=== PATIENT | male | born 1950 | race Caucasian/White ===

== ENCOUNTER 2017-04-21 14:13 | Inpatient (IN) | payer OTHER, MEDICARE ==
[~2017-04-21] VITALS: Ht 172.7 cm; Wt 77.9 kg
[2017-04-21 18:54] VITALS: BP 169/63; PULSE 88; RESP 16; TEMP 98.4; O2SAT 95
[2017-04-21] MEDS ORDERED: diphenhydrAMINE HCL 50 MG/ML VIAL - HS PRN IM (20:45)
[2017-04-21] MEDS ORDERED: MAGNESIUM HYDROXIDE SUSP 30 ML CUP PO PRN (20:45)
[2017-04-21] MEDS ORDERED: LORazepam 2 MG/ML VIAL - age > 65 yrs IM PRN (20:45)
[2017-04-21] MEDS ORDERED: ALUMINUM/MAGNESIUM/SIMETH 30 ML CUP PO PRN (20:45)
[2017-04-21] MEDS: REMOVE OLD NICOTINE PATCH T-DERMAL SCH (21:00)
[2017-04-21] MEDS: diphenhydrAMINE HCL 50 MG CAP - HS PRN PO (21:36)
[2017-04-21] MEDS: LORazepam 0.5 MG TAB age > 65 yrs PO PRN (21:36)
[2017-04-21] MEDS ORDERED: HYDR-3366 PO (22:20)
[2017-04-21] MEDS ORDERED: CEFU1TAB18 PO (22:30)
[2017-04-21] MEDS ORDERED: LISI10TA3 PO (22:30)
[2017-04-21] MEDS ORDERED: BACL10TA PO (22:30)
[2017-04-21] MEDS ORDERED: NORT50CA PO (22:30)
[2017-04-21] MEDS ORDERED: DULO1CAP2 PO (22:30)
[2017-04-21] MEDS ORDERED: LITH150C PO (22:30)
[2017-04-21] MEDS ORDERED: SERO50TA PO (22:30)
[2017-04-21] MEDS ORDERED: TRAZ100T10 PO (22:30)
[2017-04-21] MEDS ORDERED: FURO20TA PO (22:30)
[2017-04-21] MEDS ORDERED: ARIP1TAB11 PO (22:30)
[2017-04-22 06:05] VITALS: BP 157/89; PULSE 72; RESP 20; TEMP 98; O2SAT 99
[2017-04-22] MEDS: NICOTINE 21 MG/24 HR PATCH T-DERMAL SCH (08:02)
[2017-04-22] MEDS ORDERED: ALUMINUM/MAGNESIUM/SIMETH 30 ML CUP PO PRN (14:30)
[2017-04-22] MEDS ORDERED: MAGNESIUM HYDROXIDE SUSP 30 ML CUP PO PRN (14:30)
[2017-04-22] MEDS ORDERED: ACETAMINOPHEN 325 MG TAB PO PRN (14:30)
--- NOTE | 2017-04-22 14:54 | HHI.HP ---
Provisional Diagnosis Admission Date Apr 21, 2017 at 18:00 [place]. Bipolar disorder most recent episode mixed manic moderate f 31.62 Certification of Person's Competence To Provide Express and Informed Consent I have personally examined Danny Todd , a person being served at [facility] on, Apr 22, 2017 14:34. Express and informed consent means consent voluntarily given in writing, by a competent person, after sufficient explanation and disclosure of the subject matter involved to enable the person to make a knowing and willful decision without any element of force, fraud, deceit, duress, or other form of constraint or coercion. This person is 18 years of age or older, is not now known to be incompetent to consent to treatment with a guardian advocate, and does not have a health care surrogate or proxy currently making medical treatment decisions. I have found this person to be one of the following: [] Competent to provide express and informed consent, as defined above, for voluntary admission to this facility and is competent to provide express and informed consent for treatment. He/she has the consistent capacity to make well reasoned, willful, and knowing decisions concerning his or her medical or mental health treatment. The person fully and consistently understands the purpose of the admission for examination/placement and is fully capable of personally exercising all rights assured [place] [] Incompetent to provide express and informed consent to voluntary admission, and this is incompetent to provide express and informed consent to treatment. The person must be transferred to involuntary status and a petition for a guardian advocate filed with the Circuit Court. [xxx] Refusing to provide express and informed consent to voluntary admission but is competent to provide express and informed consent for treatment. The person must be discharged or transferred to involuntary status. Form shall be completed within 24 hours of a person's arrival at the receiving facility and filed in the clinical record of each person: 1. Admitted on a voluntary basis 2. Permitted to provide express and informed consent to his/her own treatment 3. Allowed to transfer from involuntary to voluntary status 4. Prior to permitting a person to consent to his or her own treatment after having been previously found incompetent to consent to treatment. History of Present Illness Capacity: Lacks Capacity (patient was capacity to sign for admission, patient has capacity to sign for medication) Psych Chief Complaint: patient manic HPI Patient is a 67-year-old white male comes here under [place] act signed by dawit Kyle April 18, 2017 8:11 AM at [facility] stating bipolar mixed labile agitated she was admitted to that hospital with complaints of back and leg pain. Was noted to be exhibiting manic behaviors also was seen by various physicians at that facility their diagnostic impression included acute renal failure superimposed delirium disorder appears to be resolving, bipolar disorder mixed, opiate use disorder. It appears the patient lives with a girlfriend plus years. For some reason he went off of his lithium and medication a few weeks ago. His behavior in the ED with these physicians showed irritability paranoia and lability. Homicidality able to find a urine toxicology her alcohol level assessment on this gentleman. It appears he was medically cleared on 04/20/17 at 1335 hrs. Patient transferred to this facility under the Gant act. [place] level drawn this morning came back at 0.11. At the present time patient sitting on his bed in his room nurse Norma present throughout session. Patient is alert he is oriented to person place situation and time there is a somewhat dysarthric stuttering speech. He is quite labile and emotional acknowledging racing thoughts he does have pressured speech. Though he does swing rapidly elevating irritable mood and loud hysterical weekly he also at times somewhat cynical giving information that is at times contradictory appears he has been living with this one woman for over 30 years but then he would state he has 3 or 4 girlfriends. He acknowledges being an alcoholic but has been sober for 25-30 years acknowledges marijuana in the past also. He denies any prior physical or sexual abuse. He somewhat superficial he states that his family of origin all had mental health issues and addiction issues. He states never been and has no children. He states she's been diagnosed with bipolar disorder 40 years ago meets had 10+ psychiatric hospitalizations. There is been seen recently through [employer] act. It appears as noted on lithium and Seroquel at [facility]. At this time patient does meet criteria for further inpatient psychiatric hospitalization. I'll do first opinion request second opinion. I feel he does have capacity to sign for medication. We will also the hospitalist consult with us related to his various medical issues. We will restart his medications per the med reconciliation. Hopeless be a fairly short stay in the return of the community follow-up [facility] [place] act Review of Systems Constitutional: DENIES: Diaphoretic episodes, Fatigue, Fever, Weight gain, Weight loss, Chills, Dizziness, Change in appetite, Night Sweats Endocrine: DENIES: Heat/cold intolerance, Polydipsia, Polyuria, Polyphagia Eyes: DENIES: Blurred vision, Diplopia, Eye inflammation, Eye pain, Vision loss , Photosensitivity, Double Vision Ears, nose, mouth, throat: DENIES: Tinnitus, Hearing loss, Vertigo, Nasal discharge, Oral lesions, Throat pain, Hoarseness, Ear Pain, Running Nose, Epistaxis, Sinus Pain, Toothache, Odynophagia Respiratory: DENIES: Apneas, Cough, Snoring, Wheezing, Hemoptysis, Sputum production, Shortness of breath Cardiovascular: DENIES: Chest pain, Palpitations, Syncope, Dyspnea on Exertion , PND, Lower Extremity Edema, Orthopnea, Claudication Gastrointestinal: DENIES: Abdominal pain, Black stools, Bloody stools, Constipation, Diarrhea, Nausea, Vomiting, Difficulty Swallowing, Anorexia Genitourinary: DENIES: Sexual dysfunction, Urinary frequency, Urinary incontinence, Urgency, Hematuria, Dysuria, Nocturia, Penile Discharge, Testicular Pain, Testicular Swelling Musculoskeletal: DENIES: Joint pain, Muscle aches, Stiffness, Joint Swelling, Back pain, Neck pain Integumentary: DENIES: Abnormal pigmentation, Nail changes, Pruritus, Rash Hematologic/lymphatic: DENIES: Bruising, Lymphadenopathy Immunologic/allergic: DENIES: Eczema, Urticaria Neurologic: DENIES: Abnormal gait, Headache, Localized weakness, Paresthesias, Seizures, Speech Problems, Tremor, Poor Balance Psychiatric: COMPLAINS OF: Anxiety, Mood changes, Depression Past Psych History Psychological trauma history Patient denies Violence risk - others (6 mos) Low Violence risk - self (6 mos) Low Substance Abuse History Drugs/Alcohol past 12 months Patient states long distant past history alcohol marijuana abuse Past Family Social History Coded Allergies: No Known Allergies (Unverified , 04/21/17) Reported Medications Baclofen (Baclofen) 10 Mg Tab, 10 MG PO TID Y for MUSCLE SPASM, TAB 0 Refills 04/21/17 Aripiprazole (Aripiprazole) 5 Mg Tab, 5 MG PO DAILY, #30 TAB 0 Refills 04/21/[address] (Duloxetine DR) 30 Mg Capdr, 30 MG PO DAILY, #30 CAP 0 Refills 04/21/17 Nortriptyline (Nortriptyline) 50 Mg Cap, 50 MG PO BID for Depression Control, # 90 CAP 0 Refills 04/21/17 Furosemide (Furosemide) 20 Mg Tab, 20 MG PO DAILY, #30 TAB 0 Refills 04/21/17 Trazodone (Trazodone) 100 Mg Tablet, 100 MG PO TID for Control Depression, #90 TAB 0 Refills 04/21/17 [place] Carbonate ([place] Carbonate) 150 Mg Cap, 150 MG PO BID, CAP 0 Refills 04/21/17 Lisinopril (Lisinopril) 10 Mg Tab, 10 MG PO BID, #30 TAB 0 Refills 04/21/17 Quetiapine (Seroquel) 50 Mg Tab, 50 MG PO BID, #60 TAB 0 Refills 04/21/17 Cefuroxime (Ceftin) 250 Mg Tab, 250 MG PO BID for 7 Days, #14 TAB 04/21/17 Hydrocodone-Acetaminophen ([place]) 10-325 Mg Tab, 1 TAB PO Q6H Y for PAIN, TAB 0 Refills 04/21/17 Current Medications Medications (Trade) Dose Ordered Sig/Omayra Route Start Time Stop Time Status Last Admin (Ativan) 0.5 mg Q12H PRN PO 04/21/17 20:45 04/21/17 21:36 (Ativan Inj) 0.5 mg Q12H PRN IM 04/21/17 20:45 (Benadryl) 50 mg HS PRN PO 04/21/17 20:45 04/21/17 21:36 (Benadryl Inj) 50 mg HS PRN IM 04/21/17 20:45 (Tylenol) 650 mg Q4H PRN PO 04/21/17 20:45 (Milk Of Magnesia Liq) 30 ml DAILY PRN PO 04/21/17 20:45 (Mag-Al Plus Susp Liq) 30 ml Q6H PRN PO 04/21/17 20:45 (Habitrol 21 Mg Patch.24 Hr) 1 patch DAILY T-DERMAL 04/22/17 09:00 04/22/17 08:02 Miscellaneous Information 1 HS T-DERMAL 04/21/17 21:00 (Tylenol) 650 mg Q4H PRN PO 04/22/17 14:30 UNV (Milk Of Magnesia Liq) 30 ml DAILY PRN PO 04/22/17 14:30 UNV (Mag-Al Plus Susp Liq) 30 ml Q6H PRN PO 04/22/17 14:30 UNV (Habitrol 21 Mg Patch.24 Hr) 1 patch DAILY T-DERMAL 04/23/17 09:00 UNV (Atarax) 50 mg Q6H PRN PO 04/22/17 14:30 UNV (Abilify) 5 mg DAILY PO 04/23/17 09:00 UNV (Ceftin) 250 mg BID PO 04/22/17 21:00 UNV (Cymbalta Dr) 30 mg DAILY PO 04/23/17 09:00 UNV (Lasix) 20 mg DAILY PO 04/23/17 09:00 UNV (Prinivil) 10 mg BID PO 04/22/17 21:00 UNV (Lithotabs) 150 mg BID PO 04/22/17 21:00 UNV Non-Formulary Medication 50 mg BID PO 04/22/17 21:00 UNV Family Psych History Patient states strong history alcohol and mental health issues and family Social History Patient isn't been states is living with his girlfriend for the past 30 + years Patient's Strengths (min. 2) Patient verbal label access healthcare Physical Exam Patient medically cleared [facility] comment the present time patient sitting quietly in his room. He is in no acute distress. He is in no respiratory distress. Complains of mild back pain. Moves all 4 extremities without difficulty no abnormal motor movements noted Vital Signs Vital Signs Date Time Temp Pulse Resp B/P (MAP) Pulse Ox O2 Delivery O2 Flow Rate FiO2 04/22/17 06:05 98.0 72 20 157/89 (111) 99 I/O 04/22/17 04/22/17 04/23/17 08:00 16:00 00:00 Intake Total 240 ml 240 ml Balance 240 ml 240 ml Lab Results Test 04/22/17 08:50 [place] Level 0.1 MEQ/L Mental Status Examination Appearance: Appropriate Consciousness: Alert Orientation: Person, Place, Date/Time, Situation Motor Activity: Normal gait Speech: Other (somewhat dysarthric) Language: Adequate Fund of Knowledge: Adequate Attention and Concentration: Adequate Memory: Unremarkable Mood: Sad, Anxious, Manic Affect: Other (increase range and intensity) Thought Process & Associations: Intact Thought Content: Bizarre thinking Hallucination Type: None Delusion Type: None Suicidal Ideation: No Suicidal Plan: No Suicidal Intention: No Homicidal Ideation: No Homicidal Plan: No Homicidal Intention: No Insight: Fair Judgment: Impulsive Assessment & Plan Problem List: (1) Bipolar I disorder, most recent episode mixed, moderate ICD Codes: F31.62 - Bipolar disorder, current episode mixed, moderate Status: Acute Assessment & Plan Estimated LOS: 7 days patient continues manic mixed labile with vigilance. And some irritability. We'll restart his medications per the med reconciliation will have a hospitalist consult was also. I feel he does meet criteria for involuntary hospitalization thus I'll do first opinion petition supporting Gant act request second opinion feel he does have capacity to sign for his medications Discharge Planning To return to his own domicile when stabilized Request HC Surrog/Guard Advoc?: No Clark Hair MD Apr 22, 2017 14:54
--- NOTE | 2017-04-22 17:23 | PD.CONS ---
[facility] Request[facility] By Reason for Consult Recent renal failure, suggestions for renal diet Primary Care Physician Unknown Diagnoses: (1) HTN (hypertension) (2) Bipolar I disorder, most recent episode mixed, moderate (3) Acute renal injury (4) Rhabdomyolysis (5) Aspiration pneumonia History of Present Illness 67-year-old male admitted to inpatient psychiatry services under a Gant act for bipolar disorder. Chart was reviewed, patient was initially admitted to [facility] after presenting to ED with complaints of back and leg pain. He was admitted and treated for aspiration pneumonia, acute renal injury , rhabdomyolysis, hypertension, and bipolar disorder. Patient was discharged under Gant act and transferred to [place] psychiatry unit where he is currently. Patient was seen and examined with nurse Green at [facility]. Patient is alert and oriented only to self. He begins by asking me for his medications and states that he cannot go very long without them. He specifically is telling me that he suffers from neuropathy and takes Lortab 7.5 for his pain. He states that he has to get out of here so that he can get back on his regular medications. He is a very poor historian and is not sure what he takes at home for medications regarding his blood pressure. He is also not able to tell me the names of his doctors who he sees on a regular basis. Patient denies any heart issues and is not aware of why he is taking Lasix. He complains of neuropathy in both of his legs and states that his doctor was giving him 75 pills for his pain. He denies any chest pain, shortness of breath, cough, lightheadedness, dizziness. He denies any fevers, chills, nausea, vomiting, diarrhea. He does report that he will get constipated at home and is requesting MiraLAX. Does not complain of any constipation at this current moment. He denies any muscle aches or pains, states that he fell prior to going to [facility]. His conversation is fast with dysarthric and stuttering. Review of Systems ROS Limitations: Psychotic (bipolar disorder) Except as stated in HPI: all other systems reviewed are Neg Past Family Social History Allergies: Coded Allergies: No Known Allergies (Unverified , 04/21/17) Past Medical History Hypertension Nurse reports patient also has a history of bladder cancer treated with chemotherapy and radiation Past Surgical History Unable to obtain Reported Medications Reported Meds & Active Scripts Active Reported Baclofen 10 Mg Tab 10 Mg PO TID PRN Aripiprazole 5 Mg Tab 5 Mg PO DAILY Duloxetine DR (Duloxetine HCl) 30 Mg Capdr 30 Mg PO DAILY Nortriptyline (Nortriptyline HCl) 50 Mg Cap 50 Mg PO BID Furosemide 20 Mg Tab 20 Mg PO DAILY Trazodone (Trazodone HCl) 100 Mg Tablet 100 Mg PO TID [place] Carbonate 150 Mg Cap 150 Mg PO BID Lisinopril 10 Mg Tab 10 Mg PO BID Seroquel (Quetiapine Fumarate) 50 Mg Tab 50 Mg PO BID Ceftin (Cefuroxime Axetil) 250 Mg Tab 250 Mg PO BID 7 Days [place] (Hydrocodone-Acetaminophen) 10-325 Mg Tab 1 Tab PO Q6H PRN Active Ordered Medications Current Medications Medications (Trade) Dose Ordered Sig/Omayra Route Start Time Stop Time Status Last Admin (Ativan) 0.5 mg Q12H PRN PO 04/21/17 20:45 04/21/17 21:36 (Ativan Inj) 0.5 mg Q12H PRN IM 04/21/17 20:45 (Benadryl) 50 mg HS PRN PO 04/21/17 20:45 04/21/17 21:36 (Benadryl Inj) 50 mg HS PRN IM 04/21/17 20:45 (Tylenol) 650 mg Q4H PRN PO 04/21/17 20:45 (Milk Of Magnesia Liq) 30 ml DAILY PRN PO 04/21/17 20:45 (Mag-Al Plus Susp Liq) 30 ml Q6H PRN PO 04/21/17 20:45 (Habitrol 21 Mg Patch.24 Hr) 1 patch DAILY T-DERMAL 04/22/17 09:00 04/22/17 08:02 Miscellaneous Information 1 HS T-DERMAL 04/21/17 21:00 (Atarax) 50 mg Q6H PRN PO 04/22/17 14:30 (Abilify) 5 mg DAILY PO 04/23/17 09:00 (Ceftin) 250 mg BID PO 04/22/17 21:00 04/29/17 20:59 (Cymbalta Dr) 30 mg DAILY PO 04/23/17 09:00 (Lasix) 20 mg DAILY PO 04/23/17 09:00 (Prinivil) 10 mg BID PO 04/22/17 21:00 (Lithotabs) 150 mg BID PO 04/22/17 21:00 (SEROquel) 50 mg BID PO 04/22/17 21:00 Family History Unable to obtain Social History Unable to obtain Physical Exam Vital Signs Vital Signs Date Time Temp Pulse Resp B/P (MAP) Pulse Ox O2 Delivery O2 Flow Rate FiO2 04/22/17 06:05 98.0 72 20 157/89 (111) 99 04/21/17 18:54 98.4 88 16 169/63 (98) 95 Physical Exam GENERAL: This is a well-nourished, well-developed patient, in no apparent distress. SKIN: No rashes, ecchymoses minor scratch noted on forehead and left side of chin. Cool and dry. HEAD: Atraumatic. Normocephalic. EYES: Pupils equal round and reactive. Extraocular motions intact. No scleral icterus. No injection or drainage. ENT: Nose without bleeding, purulent drainage or septal hematoma. Throat without erythema. Uvula midline. Airway patent. NECK: Trachea midline. No JVD Supple, nontender. CARDIOVASCULAR: Regular rate and rhythm without murmurs, gallops, or rubs. RESPIRATORY: Clear to auscultation. Breath sounds equal bilaterally. No wheezes , rales, or rhonchi. GASTROINTESTINAL: Abdomen soft, non-tender, nondistended. No guarding. MUSCULOSKELETAL: Extremities without clubbing, cyanosis, or edema. No joint tenderness, effusion, or edema noted. No calf tenderness. NEUROLOGICAL: Awake and alert. Cranial nerves grossly intact. Motor and sensory grossly within normal limits. Ambulating in the hallway without any difficulties. 5/5 muscle strength in all muscle groups. Speech speech is dysarthric with stuttering. Laboratory Laboratory Tests Test 04/22/17 08:50 [place] Level 0.1 Assessment and Plan Assessment and Plan 67-year-old male admitted to inpatient psychiatry under a Gant act due to bipolar disorder. Patient recently hospitalized at [facility] treated for acute renal failure, aspiration pneumonia, rhabdomyolysis, and hypertension. Medical team has been asked to see patient and make recommendations on diet. Bipolar disorder -Management by primary psychiatry team - Disorganized thoughts and poor historian [facility] - [facility] Renal ultrasound 04/17/17 reviewed cortical thinning and echogenic kidneys noted previously. Left renal pelvis is prominent without hydronephrosis of the calyces. Probable bilateral cyst. - Lab reports reviewed CMP from 04/19/17 with BUN19, creatinine 1.43, GFR 50, phosphorus 2.1 - May consider discontinuing lisinopril if renal function is worse, consider starting amlodipine for HTN control - Recheck, asked nurse to please call lab to make them aware of labs ordered for today. Hypertension, mildly elevated - Patient currently on lisinopril 10 mg daily, Lasix 20 mg daily - Patient appears euvolemic, will have nurse verify home meds check if this was something he was on at home. - Consider switching over to amlodipine and discontinuing lisinopril due to renal failure. - Add clonidine as needed - Continue trending BP's Aspiration pneumonia - Chart reviewed patient was treated at [facility] with IV Zosyn 3.375 g every 6 hours from 04/17/17-04/21/17 - On Ceftin 250 mg twice a day for 7 days - Chest x-ray from 04/17/17 reviewed with no cardiopulmonary disease - WBC count on 04/18/17 reviewed from [facility]: WBC count 4.7, neutrophils 72 - No fevers recorded, continue monitoring respiratory status Rhabdomyolysis -Total CK 319 on 04/19/17 - Recheck labs ?neuropathy - Patient asking for Lortab in specific dose - Ambulating without any difficulties, ? If he truly is on Lortab - Gabapentin would be an alternative for neuropathy - We'll have nurse verify home meds DVT prophylaxis - Ambulating Discussed with nurse Main Schofield Apr 22, 2017 17:23
[2017-04-22 18:00] VITALS: BP 158/74; PULSE 86; RESP 18; TEMP 98.8; O2SAT 98
[2017-04-22] MEDS: QUEtiapine FUMARATE 25 MG TAB PO SCH (20:27)
[2017-04-22] MEDS: LISINOPRIL 10 MG TAB PO SCH (20:28)
[2017-04-22] MEDS: diphenhydrAMINE HCL 50 MG CAP - HS PRN PO (20:28)
[2017-04-22] MEDS: LORazepam 0.5 MG TAB age > 65 yrs PO PRN (20:28)
[2017-04-22] MEDS: LITHIUM CARBONATE 300 MG TAB PO SCH (20:28)
[2017-04-22] MEDS: CEFUROXIME AXETIL 250 MG TAB PO SCH ×2 (20:30→21:00)
[2017-04-22] MEDS: REMOVE OLD NICOTINE PATCH T-DERMAL SCH (20:31)
--- NOTE | 2017-04-22 22:42 | EKG ---
Date Performed: 04/22/2017 Time Performed: 10:49:44 PTAGE: 67 years EKG: Sinus rhythm MARKED LEFT AXIS DEVIATION POSSIBLE LEFT VENTRICULAR HYPERTROPHY POSSIBLE ANTERIOR MYOCARDIAL INFARC TION , OF INDETERMINATE AGE MODERATE T-WAVE ABNORMALITY, CONSIDER INFERIOR ISCHEMIA ABNORMAL ECG NO PREVIOUS TRACING DOCTOR: Lauren Patterson Interpretating Date/Time 04/22/2017 22:40:38
[2017-04-22] MEDS: ACETAMINOPHEN 325 MG TAB PO PRN (22:59)
[2017-04-22] MEDS: hydrOXYzine HCL 50 MG TAB PO PRN (22:59)
[2017-04-23 05:49] VITALS: BP 106/58; PULSE 78; RESP 18; TEMP 98.7; O2SAT 97
[2017-04-23] MEDS: CEFUROXIME AXETIL 250 MG TAB PO SCH ×2 (08:18→21:11)
[2017-04-23] MEDS: DULoxetine HCl DR 30 MG CAP PO SCH (08:18)
[2017-04-23] MEDS: QUEtiapine FUMARATE 25 MG TAB PO SCH ×2 (08:18→21:11)
[2017-04-23] MEDS: ARIPiprazole 5 MG TAB PO SCH (08:18)
[2017-04-23] MEDS: LITHIUM CARBONATE 300 MG TAB PO SCH ×2 (08:19→21:10)
[2017-04-23] MEDS: NICOTINE 21 MG/24 HR PATCH T-DERMAL SCH (08:22)
[2017-04-23 08:50] VITALS: BP 170/90; PULSE 87
[2017-04-23] MEDS: LISINOPRIL 10 MG TAB PO SCH ×2 (08:50→21:10)
[2017-04-23] MEDS ORDERED: FUROSEMIDE 20 MG TAB PO SCH (09:00)
[2017-04-23] MEDS ORDERED: NICOTINE 21 MG/24 HR PATCH T-DERMAL SCH (09:00)
--- NOTE | 2017-04-23 09:06 | PD.PSY.CON ---
Provisional Diagnosis Admission Date Apr 21, 2017 at 18:00 [place]. Bipolar disorder most recent episode mixed manic moderate f 31.62 History of Present Illness Service Psychiatry Consult Requested By Dr. Hair Reason for Consult Manic like behavior Primary Care Physician Unknown HPI Patient is a 67-year-old white male comes here under [facility]ant act signed by dawit Kyle April 18, 2017 8:11 AM at [facility] stating bipolar mixed labile agitated she was admitted to that hospital with complaints of back and leg pain. Was noted to be exhibiting manic behaviors also was seen by various physicians at that facility their diagnostic impression included acute renal failure superimposed delirium disorder appears to be resolving, bipolar disorder mixed, opiate use disorder. It appears the patient lives with a girlfriend plus years. For some reason he went off of his lithium and medication a few weeks ago. His behavior in the ED with these physicians showed irritability paranoia and lability. Homicidality able to find a urine toxicology her alcohol level assessment on this gentleman. It appears he was medically cleared on 04/20/17 at 1335 hrs. Patient transferred to this facility under the Gant act. [place] level drawn this morning came back at 0.11. At the present time patient sitting on his bed in his room nurse Norma present throughout session. Patient is alert he is oriented to person place situation and time there is a somewhat dysarthric stuttering speech. He is quite labile and emotional acknowledging racing thoughts he does have pressured speech. Though he does swing rapidly elevating irritable mood and loud hysterical weekly he also at times somewhat cynical giving information that is at times contradictory appears he has been living with this one woman for over 30 years but then he would state he has 3 or 4 girlfriends. He acknowledges being an alcoholic but has been sober for 25-30 years acknowledges marijuana in the past also. He denies any prior physical or sexual abuse. He somewhat superficial he states that his family of origin all had mental health issues and addiction issues. He states never been and has no children. He states she's been diagnosed with bipolar disorder 40 years ago meets had 10+ psychiatric hospitalizations. There is been seen recently through [place] act. It appears as noted on lithium and Seroquel at [facility]. At this time patient does meet criteria for further inpatient psychiatric hospitalization. I'll do first opinion request second opinion. I feel he does have capacity to sign for medication. We will also the hospitalist consult with us related to his various medical issues. We will restart his medications per the med reconciliation. Hopeless be a fairly short stay in the return of the community follow-up [facility] The patient is a 67 years old man with history of bipolar disorder seen today for second opinion. Patient is found sleeping, easily arousable. Reports feeling okay, he says that he doesn't know the reason of his hospitalizations. However, was the patient is alert and awake he demonstrates increased mood lability, rapid speech, and cannabis disorganized speech and thought process. Patient is partially oriented in time and place. He does say that he wants to take his medication for bipolar disorder and being discharged as soon as possible. Past Family Social History Coded Allergies: No Known Allergies (Unverified , 04/21/17) Reported Medications Baclofen (Baclofen) 10 Mg Tab, 10 MG PO TID Y for MUSCLE SPASM, TAB 0 Refills 04/21/17 Aripiprazole (Aripiprazole) 5 Mg Tab, 5 MG PO DAILY, #30 TAB 0 Refills 04/21/[address] (Duloxetine DR) 30 Mg Capdr, 30 MG PO DAILY, #30 CAP 0 Refills 04/21/17 Nortriptyline (Nortriptyline) 50 Mg Cap, 50 MG PO BID for Depression Control, # 90 CAP 0 Refills 04/21/17 Furosemide (Furosemide) 20 Mg Tab, 20 MG PO DAILY, #30 TAB 0 Refills 18 Trazodone (Trazodone) 100 Mg Tablet, 100 MG PO TID for Control Depression, #90 TAB 0 Refills 04/21/17 [place] Carbonate ([place] Carbonate) 150 Mg Cap, 150 MG PO BID, CAP 0 Refills 04/21/17 Lisinopril (Lisinopril) 10 Mg Tab, 10 MG PO BID, #30 TAB 0 Refills 04/21/17 Quetiapine (Seroquel) 50 Mg Tab, 50 MG PO BID, #60 TAB 0 Refills 18 Cefuroxime (Ceftin) 250 Mg Tab, 250 MG PO BID for 7 Days, #14 TAB 04/21/17 Hydrocodone-Acetaminophen ([place]) 10-325 Mg Tab, 1 TAB PO Q6H Y for PAIN, TAB 0 Refills 04/21/17 Current Medications Medications (Trade) Dose Ordered Sig/Omayra Route Start Time Stop Time Status Last Admin (Ativan) 0.5 mg Q12H PRN PO 04/21/17 20:45 04/22/17 20:28 (Ativan Inj) 0.5 mg Q12H PRN IM 04/21/17 20:45 (Benadryl) 50 mg HS PRN PO 04/21/17 20:45 04/22/17 20:28 (Benadryl Inj) 50 mg HS PRN IM 04/21/17 20:45 (Tylenol) 650 mg Q4H PRN PO 04/21/17 20:45 04/22/17 22:59 (Milk Of Magnesia Liq) 30 ml DAILY PRN PO 04/21/17 20:45 (Mag-Al Plus Susp Liq) 30 ml Q6H PRN PO 04/21/17 20:45 (Habitrol 21 Mg Patch.24 Hr) 1 patch DAILY T-DERMAL 04/22/17 09:00 04/23/17 08:22 Miscellaneous Information 1 HS T-DERMAL 04/21/17 21:00 (Atarax) 50 mg Q6H PRN PO 04/22/17 14:30 04/22/17 22:59 (Abilify) 5 mg DAILY PO 04/23/17 09:00 04/23/17 08:18 (Ceftin) 250 mg BID PO 04/22/17 21:00 04/29/17 20:59 04/23/17 08:18 (Cymbalta Dr) 30 mg DAILY PO 04/23/17 09:00 04/23/17 08:18 (Lasix) 20 mg DAILY PO 04/23/17 09:00 04/23/17 08:51 (Prinivil) 10 mg BID PO 04/22/17 21:00 04/23/17 08:50 (Lithotabs) 150 mg BID PO 04/22/17 21:00 04/23/17 08:19 (SEROquel) 50 mg BID PO 04/22/17 21:00 04/23/17 08:18 Patient's Strengths (min. 2) Patient verbal label access healthcare Physical Exam Vital Signs Vital Signs Date Time Temp Pulse Resp B/P (MAP) Pulse Ox O2 Delivery O2 Flow Rate FiO2 04/23/17 08:50 87 170/90 (116) 04/23/17 05:49 98.7 18 97 Mental Status Examination Appearance: Appropriate Consciousness: Alert Orientation: Person, Place, Date/Time, Situation Motor Activity: Normal gait Speech: Other (somewhat dysarthric) Language: Adequate Fund of Knowledge: Adequate Attention and Concentration: Adequate Memory: Unremarkable Mood: Sad, Anxious, Manic Affect: Other (increase range and intensity) Thought Process & Associations: Intact Thought Content: Bizarre thinking Hallucination Type: None Delusion Type: None Suicidal Ideation: No Suicidal Plan: No Suicidal Intention: No Homicidal Ideation: No Homicidal Plan: No Homicidal Intention: No Insight: Fair Judgment: Impulsive Assessment & Plan Problem List: (1) Bipolar I disorder, most recent episode mixed, moderate ICD Codes: F31.62 - Bipolar disorder, current episode mixed, moderate Status: Acute Assessment & Plan: I have seen and examined this patient for second opinion, reviewed the chart. I completely agree and concur with Dr. Hair's assessment and plan Assessment & Plan Estimated LOS: days Request HC Surrog/Guard Advoc?: No Chris Chavez MD Apr 23, 2017 09:06
--- NOTE | 2017-04-23 10:07 | HHI.PYPN ---
Subjective Chief Complaint: patient manic Remarks Patient seen in day room with nurse, chart reviewed, patient plan medications. Continues intrusive labile with pressured speech, patient is somewhat reactive to another male patient who is also somewhat manic. The 2 of them needed interventions to back off of each other. Patient does little insight. Patient states he didn't sleep well suggested that we reinitiate his trazodone stating that he had been taking 300 mg at bedtime. We'll restart him at 200 mg at bedtime. We will also recheck his lithium level on 04/26 Review of Systems Except as stated in HPI: all other systems reviewed are Neg Mental Status Examination Appearance: Appropriate Consciousness: Alert Orientation: Person, Place, Date/Time, Situation Motor Activity: Normal gait Speech: Other (somewhat dysarthric) Language: Adequate Fund of Knowledge: Adequate Attention and Concentration: Adequate Memory: Unremarkable Mood: Sad, Anxious, Manic Affect: Other (increase range and intensity) Thought Process & Associations: Intact Thought Content: Bizarre thinking Hallucination Type: None Delusion Type: None Suicidal Ideation: No Suicidal Plan: No Suicidal Intention: No Homicidal Ideation: No Homicidal Plan: No Homicidal Intention: No Insight: Fair Judgment: Impulsive Results Vitals/IOs Vital Signs Date Time Temp Pulse Resp B/P (MAP) Pulse Ox O2 Delivery O2 Flow Rate FiO2 04/23/17 08:50 87 170/90 (116) 04/23/17 05:49 98.7 18 97 Assessment & Plan Problem List: (1) Bipolar I disorder, most recent episode mixed, moderate ICD Codes: F31.62 - Bipolar disorder, current episode mixed, moderate Status: Acute Assessment & Plan Estimated LOS: days patient continues manic intrusive vigilant irritable and somewhat confrontational. She medication adjustments about Justification for Cont. Inpt. At this time patient will decompensate a place to the lower level of care Discharge Planning Counselors need to work on placement issues Request HC Surrog/Guard Advoc?: No Clark Hair MD Apr 23, 2017 10:07
[2017-04-23 10:13] LABS: AUTOMATED NEUTROPHIL # 4.3 TH/MM3 (1.8-7.7); BASOPHIL % 0.6 % (0.0-2.0); EOSINOPHIL # 0.5 TH/MM3 (0-0.4); EOSINOPHIL % 7.6 % (0.0-4.0); HEMATOCRIT 40.4 % (39.0-51.0); HEMOGLOBIN 13.6 GM/DL (13.0-17.0); LYMPH % 17.5 % (9.0-44.0); LYMPHOCYTE # 1.1 TH/MM3 (1.0-4.8); MEAN CELL VOLUME 101.1 FL (80.0-100.0); MEAN CORPUSCULAR HGB CONC 33.7 % (32.0-36.0); MEAN PLATELET VOLUME 8.3 FL (7.0-11.0); MONO % 8.4 % (0.0-8.0); MONOCYTE # 0.5 TH/MM3 (0-0.9); NEUT % 65.9 % (16.0-70.0); PLATELET COUNT 333 TH/MM3 (150-450); RED CELL DISTRIBUTION WIDTH 13.5 % (11.6-17.2); WHITE BLOOD COUNT 6.5 TH/MM3 (4.0-11.0)
[2017-04-23 10:47] LABS: ALBUMIN 4.2 GM/DL (3.4-5.0); ALT (GPT) 34 U/L (12-78); AST (GOT) 22 U/L (15-37); BICARBONATE 31.5 MEQ/L (21.0-32.0); BLOOD UREA NITROGEN 20 MG/DL (7-18); CALCIUM 10.4 MG/DL (8.5-10.1); CHLORIDE 104 MEQ/L (98-107); CREATININE 1.37 MG/DL (0.60-1.30); GLOMERULAR FILTRATION RATE 52 ML/MIN (>89); GLUCOSE,RANDOM 115 MG/DL (74-106); MAGNESIUM 2.2 MG/DL (1.5-2.5); SODIUM (NA) 140 MEQ/L (136-145)
[2017-04-23 10:55] LABS: ALKALINE PHOSPHATASE 79 U/L (45-117); FREE T4 1.01 NG/DL (0.76-1.46); PHOSPHORUS 3.6 MG/DL (2.5-4.9); TOTAL BILIRUBIN ADULT 0.4 MG/DL (0.2-1.0); TOTAL PROTEIN 8.2 GM/DL (6.4-8.2)
--- NOTE | 2017-04-23 15:29 | HHI.PR ---
Subjective Remarks Follow up on 67-year-old male admitted to inpatient psychiatry under a Gant act due to bipolar disorder. Recently hospitalized at [facility] treated for acute renal failure, aspiration pneumonia, rhabdomyolysis, and hypertension. Patient seen and examined in his room. He continues to complain of bilateral feet neuropathy which radiates up his legs to about his knees. Today he is requesting gabapentin 800 mg 3 times a day. He denies any fevers, chills, nausea, vomiting, diarrhea. He is also denying shortness of breath or cough. Patient is also requesting trazodone for sleep as he states the burning in his feet keeps him up at bedtime. Objective Vitals Vital Signs Date Time Temp Pulse Resp B/P (MAP) Pulse Ox O2 Delivery O2 Flow Rate FiO2 04/23/17 08:50 87 170/90 (116) 04/23/17 05:49 98.7 78 18 106/58 (74) 97 04/22/17 18:00 98.8 86 18 158/74 (102) 98 I/O 04/22/17 04/22/17 04/22/17 04/23/17 04/23/17 04/23/17 07:00 15:00 23:00 07:00 15:00 23:00 Intake Total 480 ml 240 ml Balance 480 ml 240 ml Intake Oral 480 ml 240 ml Result Diagram: 04/23/1727 04/23/17 08 Objective Remarks GENERAL: This is a well-nourished, well-developed patient, in no apparent distress. SKIN: No rashes, ecchymoses minor scratch noted on forehead and left side of chin. Cool and dry. HEAD: Atraumatic. Normocephalic. EYES: Pupils equal round and reactive. Extraocular motions intact. No scleral icterus. No injection or drainage. ENT: Nose without bleeding, purulent drainage or septal hematoma. T. Airway patent. NECK: Trachea midline. No JVD CARDIOVASCULAR: Regular rate and rhythm without murmurs, gallops, or rubs. RESPIRATORY: Clear to auscultation. Breath sounds equal bilaterally. No wheezes , rales, or rhonchi. GASTROINTESTINAL: Abdomen soft, non-tender, nondistended. No guarding. MUSCULOSKELETAL: Extremities without clubbing, cyanosis, or edema. No joint tenderness, effusion, or edema noted. No calf tenderness. NEUROLOGICAL: Awake and alert. Cranial nerves grossly intact. Motor and sensory grossly within normal limits. Ambulating in the hallway without any difficulties. 5/5 muscle strength in all muscle groups. Speech speech is dysarthric with stuttering. A/P Problem List: (1) HTN (hypertension) ICD Code: I10 - Essential (primary) hypertension (2) Bipolar I disorder, most recent episode mixed, moderate ICD Code: F31.62 - Bipolar disorder, current episode mixed, moderate Status: Acute (3) Acute renal injury ICD Code: N17.9 - Acute kidney failure, unspecified (4) Rhabdomyolysis ICD Code: M62.82 - Rhabdomyolysis (5) Aspiration pneumonia ICD Code: J69.0 - Pneumonitis due to inhalation of food and vomit Assessment and Plan 67-year-old male admitted to inpatient psychiatry under a Gant act due to bipolar disorder. Patient recently hospitalized at [facility] treated for acute renal failure, aspiration pneumonia, rhabdomyolysis, and hypertension. Medical team has been asked to see patient and make recommendations on diet. Bipolar disorder - Management by primary psychiatry team - Disorganized thoughts and poor historian [facility] - [facility] Renal ultrasound 04/17/17 reviewed cortical thinning and echogenic kidneys noted previously. Left renal pelvis is prominent without hydronephrosis of the calyces. Probable bilateral cyst. - Lab reports reviewed CMP from 04/19/17 with BUN19, creatinine 1.43, GFR 50, phosphorus 2.1 - May consider discontinuing lisinopril if renal function is worse, consider starting amlodipine for HTN control - Labwork this morning BUN 20, creatinine 1.37, GFR 52 slight improvement from previous labs. - Continue monitoring renal function, hemoglobin A1c pending Hypertension, mildly elevated - Patient currently on lisinopril 10 mg daily, Lasix 20 mg daily, will discontinue Lasix - Patient appears euvolemic. [facility] patient has not filled any Lasix in the past year. - BP elevated this morning 170/90 nurse reports patient was agitating and arguing with other patients. Recheck BP at the time of my visit at bedside 158/ 78 - clonidine as needed - Continue trending BP's Aspiration pneumonia - Chart reviewed patient was treated at [facility] with IV Zosyn 3.375 g every 6 hours from 04/17/17-04/21/17 - On Ceftin 250 mg twice a day for 7 days - Chest x-ray from 04/17/17 reviewed with no cardiopulmonary disease - WBC count on 04/18/17 reviewed from [facility]: WBC count 4.7, neutrophils 72 - WBC count today stable - No fevers recorded, continue monitoring respiratory status Rhabdomyolysis -Total CK 319 on 04/19/17 - CK order to be added to labs this AM placed ?neuropathy - Patient asking for Lortab in specific dose yesterday today asking for gabapentin. - Ambulating without any difficulties. Nurse called patient's pharmacy last dose for gabapentin was 05/2016 for gabapentin 300 mg 3 times a day - Will start gabapentin 100 mg 3 times a day DVT prophylaxis - Ambulating Discussed with nurse. Main Dennis Apr 23, 2017 15:29
[2017-04-23] MEDS: GABAPENTIN 100 MG CAP PO SCH (17:08)
[2017-04-23 17:35] LABS: HEMOGLOBIN A1C 5.8 % (4.3-6.0)
[2017-04-23 18:19] VITALS: BP 148/90; PULSE 81; RESP 18; TEMP 98.1; O2SAT 98
[2017-04-23] MEDS: REMOVE OLD NICOTINE PATCH T-DERMAL SCH (21:00)
[2017-04-23] MEDS: hydrOXYzine HCL 50 MG TAB PO PRN (21:10)
[2017-04-23] MEDS: traZODone HCL 100 MG TAB PO SCH (21:11)
[2017-04-23] MEDS: diphenhydrAMINE HCL 50 MG CAP - HS PRN PO (21:11)
[2017-04-24] MEDS: ACETAMINOPHEN 325 MG TAB PO PRN (00:16)
[2017-04-24] MEDS: LORazepam 0.5 MG TAB age > 65 yrs PO PRN ×2 (00:17→20:13)
[2017-04-24 06:14] VITALS: BP 125/58; PULSE 64; RESP 18; TEMP 97.5; O2SAT 97
[2017-04-24] MEDS: DULoxetine HCl DR 30 MG CAP PO SCH (08:48)
[2017-04-24] MEDS: amLODIPine BESYLATE 5 MG TAB PO SCH (08:48)
[2017-04-24] MEDS: QUEtiapine FUMARATE 25 MG TAB PO SCH ×2 (08:48→20:13)
[2017-04-24] MEDS: ARIPiprazole 5 MG TAB PO SCH (08:48)
[2017-04-24] MEDS: GABAPENTIN 100 MG CAP PO SCH ×3 (08:48→17:59)
[2017-04-24] MEDS: CEFUROXIME AXETIL 250 MG TAB PO SCH ×2 (08:48→20:13)
[2017-04-24] MEDS: LITHIUM CARBONATE 300 MG TAB PO SCH ×2 (08:49→20:14)
[2017-04-24] MEDS: NICOTINE 21 MG/24 HR PATCH T-DERMAL SCH (08:50)
[2017-04-24] MEDS: LISINOPRIL 10 MG TAB PO SCH ×2 (08:55→20:15)
[2017-04-24 09:00] VITALS: BP 138/77
--- NOTE | 2017-04-24 15:11 | HHI.PR ---
Subjective Remarks Follow-up visit acute renal failure, aspiration pneumonia, Xarelto, HTN. Patient seen and examined today sitting in chair. Has been walking around the hallway with other patients. Reports he is doing well. Denies any expectoration, cough. States he used to smoke but now he is on nicotine patch. Denies pain or discomfort. Denies chest pain, palpitations, headache, dizziness. Denies shortness of breath or dyspnea. Denies fevers, chills, nausea, vomiting, diarrhea. Objective Vitals Vital Signs Date Time Temp Pulse Resp B/P (MAP) Pulse Ox O2 Delivery O2 Flow Rate FiO2 04/24/17 09:00 138/77 (97) 04/24/17 06:14 97.5 64 18 125/58 (80) 97 04/23/17 18:19 98.1 81 18 148/90 (109) 98 Result Diagram: 04/23/1782604/23/17826 Objective Remarks GENERAL: This is a well-nourished, well-developed patient, in no apparent distress. SKIN: Warm and dry HEENT: Normocephalic. Pupils equal round and reactive. Nose without bleeding. Airway patent. NECK: Trachea midline. No JVD. Supple. CARDIOVASCULAR: Regular rate and rhythm without murmurs, gallops, or rubs. RESPIRATORY: Expiratory wheeze. Probably coarse breath sounds. GASTROINTESTINAL: Abdomen soft, non-tender, nondistended. Bowel Sounds normoactive x4. MUSCULOSKELETAL: Extremities without clubbing, cyanosis, or edema. NEUROLOGICAL: Awake and alert. Oriented place, person. No focal neuro deficit. Moves all extremities. Normal speech. A/P Problem List: (1) HTN (hypertension) ICD Code: I10 - Essential (primary) hypertension (2) Bipolar I disorder, most recent episode mixed, moderate ICD Code: F31.62 - Bipolar disorder, current episode mixed, moderate Status: Acute (3) Acute renal injury ICD Code: N17.9 - Acute kidney failure, unspecified (4) Rhabdomyolysis ICD Code: M62.82 - Rhabdomyolysis (5) Aspiration pneumonia ICD Code: J69.0 - Pneumonitis due to inhalation of food and vomit Assessment and Plan 67-year-old male admitted to inpatient psychiatry under a Gant act due to bipolar disorder. Patient recently hospitalized at [facility] treated for acute renal failure, aspiration pneumonia, rhabdomyolysis, and hypertension. Medical team has been asked to see patient and make recommendations on diet. Bipolar disorder - Management by primary psychiatry team - Disorganized thoughts and poor historian Acute kidney injury on possibly CKD - [facility] Renal ultrasound 04/17/17 reviewed cortical thinning and echogenic kidneys noted previously. Left renal pelvis is prominent without hydronephrosis of the calyces. Probable bilateral cyst. - Lab reports reviewed CMP from 04/19/17 with BUN19, creatinine 1.43. - May consider discontinuing lisinopril if renal function is worse. - Currently BUN 20, creatinine 1.37, improved - Continue monitoring renal function, hemoglobin A1c 5.8 Hypertension, mildly elevated - Patient currently on lisinopril 10 mg daily, started amlodipine 5 mg daily. Lasix 20 mg daily, discontinue - Clonidine as needed - Continue trending BP's. Improved Aspiration pneumonia COPD, underlying patient current smoker - Chart reviewed patient was treated at [facility] with IV Zosyn 3.375 g every 6 hours from 04/17/17-04/21/17 - On Ceftin 250 mg twice a day for 7 days - Chest x-ray from 04/17/17 no cardiopulmonary disease - WBC count on 04/18/17 from [facility]: WBC count 4.7, neutrophils 72 - Symbicort twice a day, DuoNeb's. DuoNeb's when necessary - Monitor respiratory status Rhabdomyolysis - Total CK 319 --> 79 resolved Neuropathy - Ambulating without any difficulties. - Continue gabapentin 100 mg 3 times a day DVT prophylaxis - Ambulating Luis Grider Apr 24, 2017 15:11
[2017-04-24] MEDS ORDERED: RESP: ALBUTEROL 2.5 MG/IPRATROPIUM 0.5 MG NEB (PRN) NEB (15:15)
--- NOTE | 2017-04-24 16:47 | HHI.PYPN ---
Subjective Chief Complaint: patient manic Remarks Patient was seen and case discussed with nursing. Patient remains intrusive and demanding very and affect is irritable, speech is pressured hyperverbal. He is behaving well on the unit and compliant with his medications. No outbursts Mental Status Examination Appearance: Appropriate Consciousness: Alert Orientation: Person, Place, Date/Time, Situation Motor Activity: Normal gait Speech: Other (somewhat dysarthric) Language: Adequate Fund of Knowledge: Adequate Attention and Concentration: Adequate Memory: Unremarkable Mood: Sad, Anxious, Manic Affect: Other (increase range and intensity) Thought Process & Associations: Intact Thought Content: Bizarre thinking Hallucination Type: None Delusion Type: None Suicidal Ideation: No Suicidal Plan: No Suicidal Intention: No Homicidal Ideation: No Homicidal Plan: No Homicidal Intention: No Insight: Fair Judgment: Impulsive Results Vitals/IOs Vital Signs Date Time Temp Pulse Resp B/P (MAP) Pulse Ox O2 Delivery O2 Flow Rate FiO2 04/24/17 09:00 138/77 (97) 04/24/17 06:14 97.5 64 18 97 Assessment & Plan Problem List: (1) Bipolar I disorder, most recent episode mixed, moderate ICD Codes: F31.62 - Bipolar disorder, current episode mixed, moderate Status: Acute Assessment & Plan Continue current treatment plan Justification for Cont. Inpt. Patient will decompensate in a less restrictive setting Request HC Surrog/Guard Advoc?: Evin Montenegro DO Apr 24, 2017 16:47
[2017-04-24 18:18] VITALS: BP 140/77; PULSE 81; RESP 18; TEMP 97.5; O2SAT 98
[2017-04-24] MEDS: traZODone HCL 100 MG TAB PO SCH (20:13)
[2017-04-24] MEDS: BUDESONIDE-FORMOTEROL 80/4.5 MCG INHALER INH SCH (20:14)
[2017-04-24] MEDS: REMOVE OLD NICOTINE PATCH T-DERMAL SCH (20:15)
[2017-04-24] MEDS: RESP: ALBUTEROL 2.5 MG/IPRATROPIUM 0.5 MG NEB (SCH) NEB (22:27)
[2017-04-25] MEDS: ACETAMINOPHEN 325 MG TAB PO PRN ×2 (05:46→20:23)
[2017-04-25] MEDS: hydrOXYzine HCL 50 MG TAB PO PRN (05:46)
[2017-04-25 06:00] VITALS: BP 133/90; PULSE 76; RESP 16; TEMP 97.7; O2SAT 97
[2017-04-25] MEDS: RESP: ALBUTEROL 2.5 MG/IPRATROPIUM 0.5 MG NEB (SCH) NEB ×2 (08:00→20:37)
[2017-04-25] MEDS: GABAPENTIN 100 MG CAP PO SCH ×3 (08:27→17:17)
[2017-04-25] MEDS: CEFUROXIME AXETIL 250 MG TAB PO SCH ×2 (08:28→20:21)
[2017-04-25] MEDS: LITHIUM CARBONATE 300 MG TAB PO SCH ×2 (08:28→20:22)
[2017-04-25] MEDS: QUEtiapine FUMARATE 25 MG TAB PO SCH ×2 (08:28→20:22)
[2017-04-25] MEDS: LISINOPRIL 10 MG TAB PO SCH ×2 (08:28→20:22)
[2017-04-25] MEDS: ARIPiprazole 5 MG TAB PO SCH (08:28)
[2017-04-25] MEDS: DULoxetine HCl DR 30 MG CAP PO SCH (08:28)
[2017-04-25] MEDS: amLODIPine BESYLATE 5 MG TAB PO SCH (08:31)
[2017-04-25] MEDS: NICOTINE 21 MG/24 HR PATCH T-DERMAL SCH (08:36)
[2017-04-25] MEDS: BUDESONIDE-FORMOTEROL 80/4.5 MCG INHALER INH SCH ×2 (09:00→20:23)
--- NOTE | 2017-04-25 15:58 | HHI.PYPN ---
Subjective Chief Complaint: patient manic Remarks Patient was seen and case discussed with nursing. Patient is less intrusive and less pressure today. Behaving well on the unit. Alert and oriented 3. Tolerating his medications Mental Status Examination Appearance: Appropriate Consciousness: Alert Orientation: Person, Place, Date/Time, Situation Motor Activity: Normal gait Speech: Other (somewhat dysarthric) Language: Adequate Fund of Knowledge: Adequate Attention and Concentration: Adequate Memory: Unremarkable Mood: Sad, Anxious, Manic Affect: Other (increase range and intensity) Thought Process & Associations: Intact Thought Content: Bizarre thinking Hallucination Type: None Delusion Type: None Suicidal Ideation: No Suicidal Plan: No Suicidal Intention: No Homicidal Ideation: No Homicidal Plan: No Homicidal Intention: No Insight: Fair Judgment: Impulsive Results Vitals/IOs Vital Signs Date Time Temp Pulse Resp B/P (MAP) Pulse Ox O2 Delivery O2 Flow Rate FiO2 04/25/17 06:00 97.7 76 16 133/90 (104) 97 Intake and Output 04/25/17 04/25/17 04/26/17 08:00 16:00 00:00 Intake Total 360 ml 600 ml Balance 360 ml 600 ml Assessment & Plan Problem List: (1) Bipolar I disorder, most recent episode mixed, moderate ICD Codes: F31.62 - Bipolar disorder, current episode mixed, moderate Status: Acute Assessment & Plan Continue current treatment plan Justification for Cont. Inpt. Patient will decompensate in a less restrictive setting Request HC Surrog/Guard Advoc?: No Evin Rodriguez DO Apr 25, 2017 15:58
[2017-04-25 18:11] VITALS: BP 112/63; PULSE 77; RESP 16; TEMP 97.7; O2SAT 97
[2017-04-25] MEDS: traZODone HCL 100 MG TAB PO SCH (20:21)
[2017-04-25] MEDS: LORazepam 0.5 MG TAB age > 65 yrs PO PRN (20:22)
[2017-04-25] MEDS: REMOVE OLD NICOTINE PATCH T-DERMAL SCH (20:23)
[2017-04-26] MEDS: ACETAMINOPHEN 325 MG TAB PO PRN ×2 (02:16→16:03)
[2017-04-26] MEDS: diphenhydrAMINE HCL 50 MG CAP - HS PRN PO (02:30)
[2017-04-26] MEDS: hydrOXYzine HCL 50 MG TAB PO PRN ×2 (02:30→08:06)
[2017-04-26 05:35] VITALS: BP 139/69; PULSE 74; RESP 17; TEMP 98; O2SAT 96
[2017-04-26] MEDS: RESP: ALBUTEROL 2.5 MG/IPRATROPIUM 0.5 MG NEB (SCH) NEB ×2 (08:00→20:00)
[2017-04-26] MEDS: LISINOPRIL 10 MG TAB PO SCH (08:05)
[2017-04-26] MEDS: ARIPiprazole 5 MG TAB PO SCH (08:06)
[2017-04-26] MEDS: LITHIUM CARBONATE 300 MG TAB PO SCH ×2 (08:06→21:00)
[2017-04-26] MEDS: CEFUROXIME AXETIL 250 MG TAB PO SCH ×2 (08:06→21:00)
[2017-04-26] MEDS: GABAPENTIN 100 MG CAP PO SCH ×3 (08:06→16:50)
[2017-04-26] MEDS: DULoxetine HCl DR 30 MG CAP PO SCH (08:06)
[2017-04-26] MEDS: amLODIPine BESYLATE 5 MG TAB PO SCH (08:06)
[2017-04-26] MEDS: BUDESONIDE-FORMOTEROL 80/4.5 MCG INHALER INH SCH ×2 (08:06→21:00)
[2017-04-26] MEDS: QUEtiapine FUMARATE 25 MG TAB PO SCH ×2 (08:06→21:00)
[2017-04-26] MEDS: NICOTINE 21 MG/24 HR PATCH T-DERMAL SCH (08:09)
--- NOTE | 2017-04-26 09:42 | HHI.PR ---
Subjective Remarks Follow-up visit acute renal failure, aspiration pneumonia, COPD, HTN, and rhabdo. Patient seen and examined in room. He is calm and cooperative with no acute complaints. He denies any cough, SOB, fevers or chills. He repots he is doing fine, states he will be going home today. Objective Vitals Vital Signs Date Time Temp Pulse Resp B/P (MAP) Pulse Ox O2 Delivery O2 Flow Rate FiO2 04/26/17 05:35 98.0 74 17 139/69 (92) 96 04/25/17 18:11 97.7 77 16 112/63 (79) 97 I/O 04/25/17 04/25/17 04/25/17 04/26/17 04/26/17 04/26/17 07:00 15:00 23:00 07:00 15:00 23:00 Intake Total 360 ml 600 ml 240 ml Balance 360 ml 600 ml 240 ml Intake Oral 360 ml 600 ml 240 ml # Voids 1 1 Result Diagram: 04/23/1782604/23/17826 Objective Remarks GENERAL: This is a well-nourished, well-developed patient, in no apparent distress. SKIN: No rashes, ecchymoses minor scratch noted on left side of chin, healing well. Cool and dry. HEAD: Atraumatic. Normocephalic. EYES: Pupils equal round and reactive. No scleral icterus. No injection or drainage. ENT: Nose without bleeding, purulent drainage or septal hematoma. Airway patent. NECK: Trachea midline. No JVD CARDIOVASCULAR: Regular rate and rhythm without murmurs, gallops, or rubs. RESPIRATORY: Clear to auscultation. Breath sounds equal bilaterally. No wheezes , rales, or rhonchi. GASTROINTESTINAL: Abdomen soft, non-tender, nondistended. No guarding. MUSCULOSKELETAL: Extremities without clubbing, cyanosis, or edema. No joint tenderness, effusion, or edema noted. NEUROLOGICAL: Awake and alert. Cranial nerves grossly intact. Motor and sensory grossly within normal limits. Ambulating in the hallway without any difficulties. 5/5 muscle strength in all muscle groups. Speech speech is dysarthric with stuttering. A/P Problem List: (1) HTN (hypertension) ICD Code: I10 - Essential (primary) hypertension (2) Bipolar I disorder, most recent episode mixed, moderate ICD Code: F31.62 - Bipolar disorder, current episode mixed, moderate Status: Acute (3) Acute renal injury ICD Code: N17.9 - Acute kidney failure, unspecified (4) Rhabdomyolysis ICD Code: M62.82 - Rhabdomyolysis (5) Aspiration pneumonia ICD Code: J69.0 - Pneumonitis due to inhalation of food and vomit Assessment and Plan 67-year-old male admitted to inpatient psychiatry under a Gant act due to bipolar disorder. Patient recently hospitalized at [facility] treated for acute renal failure, aspiration pneumonia, rhabdomyolysis, and hypertension. Medical team has been asked to see patient and make recommendations on diet. Bipolar disorder - Management by primary psychiatry team - Disorganized thoughts and poor historian Acute kidney injury on possibly CKD - [facility] Renal ultrasound 04/17/17 reviewed cortical thinning and echogenic kidneys noted previously. Left renal pelvis is prominent without hydronephrosis of the calyces. Probable bilateral cyst. - [id number]---61--->30, creatinine 1.43---1.37--->1.71 - Discontinue lisinopril, encourage PO fluids - Continue monitoring renal function, hemoglobin A1c 5.8 Hypertension, controlled - Patient currently on lisinopril 10 mg daily, D/C secondary to decrease in renal function - Continue amlodipine 5 mg daily, consider increasing if BP goes up - Clonidine as needed - Continue trending BP's. Aspiration pneumonia COPD, underlying patient current smoker - Chart reviewed patient was treated at [facility] with IV Zosyn 3.375 g every 6 hours from 04/17/17-04/21/17 - On Ceftin 250 mg twice a day for 7 days - Chest x-ray from 04/17/17 no cardiopulmonary disease - WBC count on 04/18/17 from [facility]: WBC count 4.7, neutrophils 72 - Symbicort twice a day, DuoNeb's. DuoNeb's when necessary - Monitor respiratory status Rhabdomyolysis - Total CK 319 --> 79 resolved Neuropathy - Ambulating without any difficulties. - Continue gabapentin 100 mg 3 times a day - No complaints DVT prophylaxis - Ambulating Main Dennis Apr 26, 2017 09:42
[2017-04-26 10:06] LABS: BICARBONATE 27.7 MEQ/L (21.0-32.0); CALCIUM 9.7 MG/DL (8.5-10.1); CREATININE 1.71 MG/DL (0.60-1.30)
--- NOTE | 2017-04-26 10:21 | PD.TTN ---
Patient Problems 1. Discharge planning 2. Medication compliance 3. Knowledge deficit 4. Lack of coping skills Progress Toward Goals Provider Present: Dr. Gabriel Hair Provider Input: 04/26/2017 - Patient is a new admission as of Wednesday. Psychiatric Counselors Present: IRIS Mckeon Psych Therapist Input: 04/26/2017 - Patient is a new admission and counselor will meet with him today. Group Spec/RT/OT/LENZ Present: Jose Ying OT Group Spec/RT/OT/LENZ Input: 04/26/2017 - Patient is a new admission. Discharge Plan SMA Documentation Scribe: Iris Mckeon Date Resolved: Apr 26, 2017 Zee Carlson Apr 26, 2017 10:21
--- NOTE | 2017-04-26 12:44 | HHI.PYPN ---
Subjective Chief Complaint: patient manic Remarks Patient seen in day room with nurse ryan, chart review, patient compliant medication. Patient overall calm but somewhat intrusive with me in some mild med seeking or for pain medication. He does denies suicidality or voices at this time. For now continue treatment Review of Systems Except as stated in HPI: all other systems reviewed are Neg Mental Status Examination Appearance: Appropriate Consciousness: Alert Orientation: Person, Place, Date/Time, Situation Motor Activity: Normal gait Speech: Other (somewhat dysarthric) Language: Adequate Fund of Knowledge: Adequate Attention and Concentration: Adequate Memory: Unremarkable Mood: Sad, Anxious, Manic Affect: Other (increase range and intensity) Thought Process & Associations: Intact Thought Content: Bizarre thinking Hallucination Type: None Delusion Type: None Suicidal Ideation: No Suicidal Plan: No Suicidal Intention: No Homicidal Ideation: No Homicidal Plan: No Homicidal Intention: No Insight: Fair Judgment: Impulsive Results Labs Test 04/26/17 08:14 Blood Urea Nitrogen 30 MG/DL Creatinine 1.71 MG/DL Random Glucose 81 MG/DL Calcium Level 9.7 MG/DL Sodium Level 137 MEQ/L Potassium Level 4.9 MEQ/L Chloride Level 104 MEQ/L Carbon Dioxide Level 27.7 MEQ/L Anion Gap 5 MEQ/L Estimat Glomerular Filtration Rate 40 ML/MIN [place] Level 0.5 MEQ/L Vitals/IOs Vital Signs Date Time Temp Pulse Resp B/P (MAP) Pulse Ox O2 Delivery O2 Flow Rate FiO2 04/26/17 05:35 98.0 74 17 139/69 (92) 96 Intake and Output 04/26/17 04/26/17 04/27/17 08:00 16:00 00:00 Intake Total 480 ml Balance 480 ml Assessment & Plan Problem List: (1) Bipolar I disorder, most recent episode mixed, moderate ICD Codes: F31.62 - Bipolar disorder, current episode mixed, moderate Status: Acute Assessment & Plan Estimated LOS: days patient continues somewhat manic irritable and demanding. At this time he denies voices visions suicidality. For now continue treatment Justification for Cont. Inpt. At this time patient will decompensate and placed in a lower level of care Discharge Planning Will need further conversation the patient's family Request HC Surrog/Guard Advoc?: No Clark Hair MD Apr 26, 2017 12:44
[2017-04-26] MEDS: LORazepam 0.5 MG TAB age > 65 yrs PO PRN (16:03)
[2017-04-26 18:00] VITALS: BP 102/55; PULSE 64; RESP 16; TEMP 98.3; O2SAT 97
[2017-04-26] MEDS: REMOVE OLD NICOTINE PATCH T-DERMAL SCH (21:00)
[2017-04-26] MEDS: traZODone HCL 100 MG TAB PO SCH (21:00)
[2017-04-27] MEDS: ACETAMINOPHEN 325 MG TAB PO PRN ×4 (00:01→20:09)
[2017-04-27 06:00] VITALS: BP 131/59; PULSE 76; RESP 18; TEMP 98.3; O2SAT 98
[2017-04-27] MEDS: QUEtiapine FUMARATE 25 MG TAB PO SCH ×3 (08:01→16:42)
[2017-04-27] MEDS: hydrOXYzine HCL 50 MG TAB PO PRN ×2 (08:01→20:11)
[2017-04-27] MEDS: LITHIUM CARBONATE 300 MG TAB PO SCH ×2 (08:01→20:09)
[2017-04-27] MEDS: ARIPiprazole 5 MG TAB PO SCH (08:01)
[2017-04-27] MEDS: CEFUROXIME AXETIL 250 MG TAB PO SCH ×2 (08:01→20:08)
[2017-04-27] MEDS: GABAPENTIN 100 MG CAP PO SCH ×3 (08:01→16:42)
[2017-04-27] MEDS: DULoxetine HCl DR 30 MG CAP PO SCH (08:01)
[2017-04-27] MEDS: amLODIPine BESYLATE 5 MG TAB PO SCH (08:01)
[2017-04-27] MEDS: NICOTINE 21 MG/24 HR PATCH T-DERMAL SCH (08:02)
[2017-04-27] MEDS: BUDESONIDE-FORMOTEROL 80/4.5 MCG INHALER INH SCH ×2 (08:02→20:07)
[2017-04-27] MEDS: RESP: ALBUTEROL 2.5 MG/IPRATROPIUM 0.5 MG NEB (SCH) NEB ×2 (09:00→19:09)
--- NOTE | 2017-04-27 11:10 | HHI.PYPN ---
Subjective Chief Complaint: patient manic Remarks Patient seen in [place] with nurse Burk, chart review, patient compliant medications. Patient continues loud intrusive wandering and irritable is also med seeking. He is demanding discharge also. However remains quite manic paranoid. Will increase scheduled Seroquel to 3 times a day, increase scheduled lithium to 300 mg twice a day check lithium level on 04/30, increasing the gabapentin to 200 mg 3 times a day Review of Systems Except as stated in HPI: all other systems reviewed are Neg Mental Status Examination Appearance: Appropriate Consciousness: Alert Orientation: Person, Place, Date/Time, Situation Motor Activity: Normal gait Speech: Other (somewhat dysarthric) Language: Adequate Fund of Knowledge: Adequate Attention and Concentration: Adequate Memory: Unremarkable Mood: Sad, Anxious, Manic Affect: Other (increase range and intensity) Thought Process & Associations: Intact Thought Content: Bizarre thinking Hallucination Type: None Delusion Type: None Suicidal Ideation: No Suicidal Plan: No Suicidal Intention: No Homicidal Ideation: No Homicidal Plan: No Homicidal Intention: No Insight: Fair Judgment: Impulsive Results Vitals/IOs Vital Signs Date Time Temp Pulse Resp B/P (MAP) Pulse Ox O2 Delivery O2 Flow Rate FiO2 04/27/17 06:00 98.3 76 18 131/59 (83) 98 Intake and Output 04/27/17 04/27/17 04/27/17 07:59 15:59 23:59 Intake Total 480 ml Balance 480 ml Assessment & Plan Problem List: (1) Bipolar I disorder, most recent episode mixed, moderate ICD Codes: F31.62 - Bipolar disorder, current episode mixed, moderate Status: Acute Assessment & Plan Estimated LOS: days patient remains manic paranoid and delusional, C medication adjustments above Justification for Cont. Inpt. At this time patient will decompensate if placed in a lower level of care Discharge Planning When he [place] family to determine placement issues Request HC Surrog/Guard Advoc?: No Clark Hair MD Apr 27, 2017 11:10
--- NOTE | 2017-04-27 13:22 | HHI.PR ---
Subjective Remarks in no acute distress. has mild generalized body ache. Objective Vitals Vital Signs Date Time Temp Pulse Resp B/P (MAP) Pulse Ox O2 Delivery O2 Flow Rate FiO2 04/27/17 06:00 98.3 76 18 131/59 (83) 98 04/26/17 18:00 98.3 64 16 102/55 (71) 97 I/O 04/26/17 04/26/17 04/26/17 04/27/17 04/27/17 04/27/17 06:59 14:59 22:59 06:59 14:59 22:59 Intake Total 240 ml 1440 ml 840 ml 240 ml 600 ml Balance 240 ml 1440 ml 840 ml 240 ml 600 ml Intake Oral 240 ml 1440 ml 840 ml 240 ml 600 ml # Voids 1 7 2 2 # Bowel Movements 1 Result Diagram: 04/23/1727 04/26/17813 Objective Remarks GENERAL: This is a well-nourished, well-developed patient, in no apparent distress. CARDIOVASCULAR: Regular rate and regular rhythm without murmurs, gallops, or rubs. RESPIRATORY: Clear to auscultation. Breath sounds equal bilaterally. No wheezes , rales, or rhonchi. GASTROINTESTINAL: Abdomen soft, non-tender, nondistended. Normal, active bowel sounds MUSCULOSKELETAL: Extremities without clubbing, cyanosis, or edema. NEURO: Alert & Oriented x4 to person, place, time, situation. Moves all ext x4 Medications and IVs Inpatient Medications Acetaminophen (Tylenol) 650 mg Q4H PRN PO Pain 1-5 or Temp >101F Last administered on 04/27/17at 08:01; Start 04/21/17 at 20:45 Al Hydrox/Mg Hydrox/Simethicone (Mag-Al Plus Susp Liq) 30 ml Q6H PRN PO DYSPEPSIA; Start 04/21/17 at 20:45 Albuterol/ Ipratropium (Duoneb Neb) 1 ampule Q6HR NEB PRN NEB SOB/WHEEZING; Start 04/24/17 at 15:15 Amlodipine Besylate (Norvasc) 5 mg DAILY PO Last administered on 04/27/17at 08:01 ; Start 04/24/17 at 09:00 Aripiprazole (Abilify) 5 mg DAILY PO Last administered on 04/27/17at 08:01; Start 04/23/17 at 09:00 Budesonide/ Formoterol Fumarate (Symbicort 80-4.5 Mcg Inh) 1 puff Q12HR INH Last administered on 04/27/17at 08:02; Start 04/24/17 at 21:00 Cefuroxime Axetil (Ceftin) 250 mg BID PO Last administered on 04/27/17at 08:01; Start 04/22/17 at 21:00; Stop 04/29/17 at 20:59 Diphenhydramine HCl (Benadryl Inj) 50 mg HS PRN IM INSOMNIA; Start 04/21/17 at 20:45 Diphenhydramine HCl (Benadryl) 50 mg HS PRN PO INSOMNIA Last administered on 04/26/17at 02:30; Start 04/21/17 at 20:45 Duloxetine HCl (Cymbalta Dr) 30 mg DAILY PO Last administered on 04/27/17at 08:01 ; Start 04/23/17 at 09:00 Furosemide (Lasix) 20 mg DAILY PO Last administered on 04/23/17at 08:51; Start at 09:00; Stop 04/23/17 at 15:38; Status DC Gabapentin (Neurontin) 200 mg TID PO Last administered on 04/27/17at 11:47; Start 04/27/17 at 13:00 Hydroxyzine HCl (Atarax) 50 mg Q6H PRN PO MILD ANXIETY Last administered on 04/27at 08:01; Start 04/22/17 at 14:30 Lisinopril (Prinivil) 10 mg BID PO Last administered on 04/26/17at 08:05; Start 04/22/17 at 21:00; Stop 04/26/17 at 10:52; Status DC Orion Carbonate (Lithotabs) 300 mg BID PO ; Start 04/27/17 at 21:00 Lorazepam (Ativan Inj) 0.5 mg Q12H PRN IM MODERATE TO SEVERE ANXIETY; Start 04/21/17 at 20:45 Lorazepam (Ativan) 0.5 mg Q12H PRN PO MODERATE TO SEVERE ANXIETY Last administered on 04/26/17at 16:03; Start 04/21/17 at 20:45 Magnesium Hydroxide (Milk Of Magnesia Liq) 30 ml DAILY PRN PO CONSTIPATION; Start 04/21/17 at 20:45 Miscellaneous Information 1 HS T-DERMAL ; Start 04/21/17 at 21:00 Nicotine (Habitrol 21 Mg Patch.24 Hr) 1 patch DAILY T-DERMAL Last administered on 04/27/17at 08:02; Start 04/22/17 at 09:00 Quetiapine Fumarate (SEROquel) 50 mg TID PO Last administered on 04/27/17at 11:47 ; Start 04/27/17 at 13:00 Trazodone HCl (Desyrel) 100 mg HS PO Last administered on 04/26/17at 21:00; Start 04/23/17 at 21:00 A/P Problem List: (1) HTN (hypertension) ICD Code: I10 - Essential (primary) hypertension (2) Bipolar I disorder, most recent episode mixed, moderate ICD Code: F31.62 - Bipolar disorder, current episode mixed, moderate Status: Acute (3) Acute renal injury ICD Code: N17.9 - Acute kidney failure, unspecified (4) Rhabdomyolysis ICD Code: M62.82 - Rhabdomyolysis (5) Aspiration pneumonia ICD Code: J69.0 - Pneumonitis due to inhalation of food and vomit Assessment and Plan Bipolar disorder - Management by primary psychiatry team - Disorganized thoughts and poor historian Acute kidney injury on possibly CKD - [facility] Renal ultrasound 04/17/17 reviewed cortical thinning and echogenic kidneys noted previously. Left renal pelvis is prominent without hydronephrosis of the calyces. Probable bilateral cyst. - [id number]---37--->30, creatinine 1.43---1.37--->1.71 - Discontinue lisinopril, encourage PO fluids - Continue monitoring renal function, hemoglobin A1c 5.8 -repeat BMP tomorrow. Hypertension, controlled - Patient currently on lisinopril 10 mg daily, D/C'ed secondary to decrease in renal function - Continue amlodipine 5 mg daily. - Clonidine as needed - Continue trending BP's. Aspiration pneumonia COPD, underlying patient current smoker - Chart reviewed patient was treated at [facility] with IV Zosyn 3.375 g every 6 hours from 04/17/17-04/21/17 - On Ceftin 250 mg twice a day for 7 days - Chest x-ray from 04/17/17 no cardiopulmonary disease - WBC count on 04/18/17 from [facility]: WBC count 4.7, neutrophils 72 - Symbicort twice a day, DuoNeb's. DuoNeb's when necessary - Monitor respiratory status Rhabdomyolysis - Total CK 319 --> 79 resolved Neuropathy - Ambulating without any difficulties. - Continue gabapentin 100 mg 3 times a day - No complaints DVT prophylaxis - Ambulating Joyce Nunn MD Apr 27, 2017 13:22
[2017-04-27 17:21] VITALS: BP 111/61; PULSE 84; RESP 18; TEMP 97.6; O2SAT 96
[2017-04-27] MEDS: traZODone HCL 100 MG TAB PO SCH (20:08)
[2017-04-27] MEDS: REMOVE OLD NICOTINE PATCH T-DERMAL SCH (21:00)
[2017-04-28] MEDS: LORazepam 0.5 MG TAB age > 65 yrs PO PRN (01:41)
[2017-04-28] MEDS: ACETAMINOPHEN 325 MG TAB PO PRN ×3 (01:41→23:38)
[2017-04-28 06:11] VITALS: BP 128/59; PULSE 76; RESP 18; TEMP 97.7; O2SAT 98
[2017-04-28] MEDS: GABAPENTIN 100 MG CAP PO SCH ×3 (08:46→16:06)
[2017-04-28] MEDS: BUDESONIDE-FORMOTEROL 80/4.5 MCG INHALER INH SCH (08:46)
[2017-04-28] MEDS: LITHIUM CARBONATE 300 MG TAB PO SCH ×2 (08:46→21:11)
[2017-04-28] MEDS: CEFUROXIME AXETIL 250 MG TAB PO SCH ×2 (08:46→21:11)
[2017-04-28] MEDS: ARIPiprazole 5 MG TAB PO SCH (08:46)
[2017-04-28] MEDS: QUEtiapine FUMARATE 25 MG TAB PO SCH ×3 (08:46→16:06)
[2017-04-28] MEDS: DULoxetine HCl DR 30 MG CAP PO SCH (08:46)
[2017-04-28] MEDS: amLODIPine BESYLATE 5 MG TAB PO SCH (08:47)
[2017-04-28] MEDS: NICOTINE 21 MG/24 HR PATCH T-DERMAL SCH (08:49)
--- NOTE | 2017-04-28 12:17 | HHI.PYPN ---
Subjective Chief Complaint: patient manic Remarks Patient seen in [place] with nurse Sandeep, chart review, patient compliant medication. Patient somewhat calmer today more focused. He denies suicidality homicidality voices or visions. He is not as intrusive, his speech rate and rhythm are slowing down. At this time I feel patient does not meet Gant criteria. He is scheduled for Gant court tomorrow. Will lift Gant act. Allow patient sign voluntary. Will be checking his lithium level over on Sunday 04/30 consider discharge after those results are assessed and evaluated Review of Systems Except as stated in HPI: all other systems reviewed are Neg Mental Status Examination Appearance: Appropriate Consciousness: Alert Orientation: Person, Place, Date/Time, Situation Motor Activity: Normal gait Speech: Other (somewhat dysarthric) Language: Adequate Fund of Knowledge: Adequate Attention and Concentration: Adequate Memory: Unremarkable Mood: Sad, Anxious, Manic Affect: Other (increase range and intensity) Thought Process & Associations: Intact Thought Content: Bizarre thinking Hallucination Type: None Delusion Type: None Suicidal Ideation: No Suicidal Plan: No Suicidal Intention: No Homicidal Ideation: No Homicidal Plan: No Homicidal Intention: No Insight: Fair Judgment: Impulsive Results Labs Test 04/28/17 10:14 Vitals/IOs Vital Signs Date Time Temp Pulse Resp B/P (MAP) Pulse Ox O2 Delivery O2 Flow Rate FiO2 04/28/17 06:11 97.7 76 18 128/59 (82) 98 Assessment & Plan Problem List: (1) Bipolar I disorder, most recent episode mixed, moderate ICD Codes: F31.62 - Bipolar disorder, current episode mixed, moderate Status: Acute Assessment & Plan Estimated LOS: days patient improving somewhat, will lift Gant act will outpatient sign voluntary, will be checking lithium level over on 04/30 and sitter discharge on 04/30 Justification for Cont. Inpt. At this time patient will decompensate placed in the lower level of care Discharge Planning Consider discharge 04/30 after getting results of lithium blood level Request HC Surrog/Guard Advoc?: No Clark Hair MD Apr 28, 2017 12:17
[2017-04-28 12:31] LABS: BICARBONATE 25.4 MEQ/L (21.0-32.0); CALCIUM 9.4 MG/DL (8.5-10.1); CREATININE 1.58 MG/DL (0.60-1.30)
--- NOTE | 2017-04-28 17:18 | HHI.PR ---
Subjective Remarks Follow up for CKD. The patient is seen in the dayroom eating dinner. He has no specific medical complaints. Vital signs reviewed and stable. Renal function stable. He tells me today he has a silk spooler in [place] but can't remember his name. He also states he sees a painting manager in [facility]. Objective Vitals Vital Signs Date Time Temp Pulse Resp B/P (MAP) Pulse Ox O2 Delivery O2 Flow Rate FiO2 04/28/17 06:11 97.7 76 18 128/59 (82) 98 04/27/17 17:21 97.6 84 18 111/61 (78) 96 I/O 04/27/17 04/27/17 04/27/17 04/28/17 04/28/17 04/28/17 07:00 15:00 23:00 07:00 15:00 23:00 Intake Total 240 ml 1320 ml 240 ml Balance 240 ml 1320 ml 240 ml Intake Oral 240 ml 1320 ml 240 ml # Voids 2 3 0 Result Diagram: 04/28/17 1014 Objective Remarks GENERAL: Well-nourished, well-developed male patient in [facility]. SKIN: Warm and dry. No rash. HEENT: Normocephalic. Atraumatic.Pupils equal and round. Mucous membranes pink and moist. NECK: Supple. Trachea midline. CARDIOVASCULAR: Regular rate and rhythm. S1, S2 noted. No murmur appreciated. RESPIRATORY: No accessory muscle use. Clear to auscultation. Breath sounds equal bilaterally. GASTROINTESTINAL: Abdomen soft, non-tender, nondistended. Normoactive bowel sounds x4. MUSCULOSKELETAL: No obvious deformities. Extremities without clubbing, cyanosis , or edema. NEUROLOGICAL: Awake and alert. No obvious cranial nerve deficits. Motor grossly within normal limits.Normal speech. Medications and IVs Current Medications Medications (Trade) Dose Ordered Sig/Omayra Route Start Time Stop Time Status Last Admin (Ativan) 0.5 mg Q12H PRN PO 04/21/17 20:45 04/28/17 01:41 (Ativan Inj) 0.5 mg Q12H PRN IM 04/21/17 20:45 (Benadryl) 50 mg HS PRN PO 04/21/17 20:45 04/26/17 02:30 (Benadryl Inj) 50 mg HS PRN IM 04/21/17 20:45 (Tylenol) 650 mg Q4H PRN PO 04/21/17 20:45 04/28/17 10:17 (Milk Of Magnesia Liq) 30 ml DAILY PRN PO 04/21/17 20:45 (Mag-Al Plus Susp Liq) 30 ml Q6H PRN PO 04/21/17 20:45 (Habitrol 21 Mg Patch.24 Hr) 1 patch DAILY T-DERMAL 04/22/17 09:00 04/28/17 08:49 Miscellaneous Information 1 HS T-DERMAL 04/21/17 21:00 04/27/17 21:00 (Atarax) 50 mg Q6H PRN PO 04/22/17 14:30 04/27/17 20:11 (Abilify) 5 mg DAILY PO 04/23/17 09:00 04/28/17 08:46 (Ceftin) 250 mg BID PO 04/22/17 21:00 04/29/17 20:59 04/28/17 08:46 (Cymbalta Dr) 30 mg DAILY PO 04/23/17 09:00 04/28/17 08:46 (Desyrel) 100 mg HS PO 04/23/17 21:00 04/27/17 20:08 (Norvasc) 5 mg DAILY PO 04/24/17 09:00 04/28/17 08:47 (Symbicort 80-4.5 Mcg Inh) 1 puff Q12HR INH 04/24/17 21:00 04/28/17 08:46 (Duoneb Neb) 1 ampule BID NEB NEB 04/24/17 20:00 04/29/17 19:59 04/27/17 19:09 (Duoneb Neb) 1 ampule Q6HR NEB PRN NEB 04/24/17 15:15 (Neurontin) 200 mg TID PO 04/27/17 13:00 04/28/17 16:06 (Lithotabs) 300 mg BID PO 04/27/17 21:00 04/28/17 08:46 (SEROquel) 50 mg TID PO 04/27/17 13:00 04/28/17 16:06 A/P Problem List: (1) HTN (hypertension) ICD Code: I10 - Essential (primary) hypertension (2) Bipolar I disorder, most recent episode mixed, moderate ICD Code: F31.62 - Bipolar disorder, current episode mixed, moderate Status: Acute (3) Acute renal injury ICD Code: N17.9 - Acute kidney failure, unspecified (4) Rhabdomyolysis ICD Code: M62.82 - Rhabdomyolysis (5) Aspiration pneumonia ICD Code: J69.0 - Pneumonitis due to inhalation of food and vomit Assessment and Plan Bipolar disorder - Management by primary psychiatry team - Disorganized thoughts and poor historian Acute kidney injury, suspect CKD stage III - [facility] Renal ultrasound 04/17/17 reviewed cortical thinning and echogenic kidneys noted previously. Left renal pelvis is prominent without hydronephrosis of the calyces. Probable bilateral cyst. - [id number]---81--->30, creatinine 1.43---1.37--->1.71--> 1.58 - Discontinue lisinopril, encourage oral fluid intake - Suspect CKD secondary to hypertensive renal disease - 04/28-Cr 1.58, stable, patient tells me today he follows with a silk spooler in [place] but can't remember the name, encouraged to continue outpatient follow up Hypertension, controlled - Patient presented on lisinopril 10 mg daily, D/C'ed secondary to decrease in renal function - Continue amlodipine 5 mg daily. - Clonidine as needed - BP stable Aspiration pneumonia COPD, underlying patient current smoker - Chart reviewed patient was treated at [facility] with IV Zosyn 3.375 g every 6 hours from 04/17/17-04/21/17 - On Ceftin 250 mg twice a day for 7 days (to be completed 04/29) - Chest x-ray from 04/17/17 no cardiopulmonary disease - WBC count on 04/18/17 from [facility]: WBC count 4.7, neutrophils 72 - Symbicort twice a day, DuoNeb's. DuoNeb's when necessary - Monitor respiratory status - stable, antibiotics to be completed tomorrow 04/29 Rhabdomyolysis - Total CK 319 --> 79, resolved Neuropathy - Ambulating without any difficulties. - Continue gabapentin 100 mg 3 times a day - No complaints DVT prophylaxis- Ambulation Discharge Planning The patient is medically stable. Hospitalists will sign off. Please reconsult as needed for any acute issues. Advised to follow up with PCP and silk spooler as outpatient after discharge. Rae Mckinney PA-C Apr 28, 2017 17:18
[2017-04-28 18:00] VITALS: BP 134/61; PULSE 80; RESP 18; TEMP 97.4; O2SAT 99
[2017-04-28] MEDS: RESP: ALBUTEROL 2.5 MG/IPRATROPIUM 0.5 MG NEB (SCH) NEB (19:06)
[2017-04-28] MEDS: REMOVE OLD NICOTINE PATCH T-DERMAL SCH (21:00)
[2017-04-28] MEDS: traZODone HCL 100 MG TAB PO SCH (21:11)
[2017-04-29] MEDS: ACETAMINOPHEN 325 MG TAB PO PRN ×4 (05:05→21:00)
[2017-04-29 05:53] VITALS: BP 153/79; PULSE 84; RESP 18; TEMP 97.4; O2SAT 95
[2017-04-29] MEDS: QUEtiapine FUMARATE 25 MG TAB PO SCH ×3 (08:28→17:12)
[2017-04-29] MEDS: LITHIUM CARBONATE 300 MG TAB PO SCH ×2 (08:28→20:55)
[2017-04-29] MEDS: ARIPiprazole 5 MG TAB PO SCH (08:28)
[2017-04-29] MEDS: DULoxetine HCl DR 30 MG CAP PO SCH (08:28)
[2017-04-29] MEDS: GABAPENTIN 100 MG CAP PO SCH ×3 (08:28→17:12)
[2017-04-29] MEDS: CEFUROXIME AXETIL 250 MG TAB PO SCH (08:28)
[2017-04-29] MEDS: amLODIPine BESYLATE 5 MG TAB PO SCH (08:28)
[2017-04-29] MEDS: BUDESONIDE-FORMOTEROL 80/4.5 MCG INHALER INH SCH ×2 (08:29→20:55)
[2017-04-29] MEDS: NICOTINE 21 MG/24 HR PATCH T-DERMAL SCH (09:00)
[2017-04-29] MEDS: hydrOXYzine HCL 50 MG TAB PO PRN ×2 (09:22→20:58)
--- NOTE | 2017-04-29 11:59 | HHI.PYPN ---
Subjective Chief Complaint: patient manic Remarks Patient seen in day room with nurse Sandeep, chart reviewed, patient compliant medication. His remains somewhat intrusive but softer. He is less demanding his voices competent and more focused. Denies suicidality homicidality voices or visions. We'll be drawing lithium level tomorrow morning and if that is therapeutic patient remains stable consider discharge tomorrow Review of Systems Except as stated in HPI: all other systems reviewed are Neg Mental Status Examination Appearance: Appropriate Consciousness: Alert Orientation: Person, Place, Date/Time, Situation Motor Activity: Normal gait Speech: Other (somewhat dysarthric) Language: Adequate Fund of Knowledge: Adequate Attention and Concentration: Adequate Memory: Unremarkable Mood: Sad, Anxious, Manic Affect: Other (increase range and intensity) Thought Process & Associations: Intact Thought Content: Bizarre thinking Hallucination Type: None Delusion Type: None Suicidal Ideation: No Suicidal Plan: No Suicidal Intention: No Homicidal Ideation: No Homicidal Plan: No Homicidal Intention: No Insight: Fair Judgment: Impulsive Results Vitals/IOs Vital Signs Date Time Temp Pulse Resp B/P (MAP) Pulse Ox O2 Delivery O2 Flow Rate FiO2 04/29/17 05:53 97.4 84 18 153/79 (103) 95 Intake and Output 04/29/17 04/29/17 04/30/17 08:00 16:00 00:00 Intake Total 360 ml Balance 360 ml Assessment & Plan Problem List: (1) Bipolar I disorder, most recent episode mixed, moderate ICD Codes: F31.62 - Bipolar disorder, current episode mixed, moderate Status: Acute Assessment & Plan Estimated LOS: days patient continues somewhat manic and intrusive but softening, compliant medication, awaiting lithium level tomorrow consider discharge tomorrow Justification for Cont. Inpt. Awaiting lithium level tomorrow morning consider discharge after that Discharge Planning Consider discharge tomorrow if lithium level is appropriate Request HC Surrog/Guard Advoc?: No Clark Hair MD Apr 29, 2017 11:59
[2017-04-29 16:53] VITALS: BP 131/69; PULSE 87; RESP 18; TEMP 97.7; O2SAT 96
[2017-04-29] MEDS: diphenhydrAMINE HCL 50 MG CAP - HS PRN PO (20:55)
[2017-04-29] MEDS: REMOVE OLD NICOTINE PATCH T-DERMAL SCH (20:55)
[2017-04-29] MEDS: traZODone HCL 100 MG TAB PO SCH (20:55)
[2017-04-30] MEDS: ACETAMINOPHEN 325 MG TAB PO PRN ×2 (02:13→08:12)
[2017-04-30] MEDS: LORazepam 0.5 MG TAB age > 65 yrs PO PRN (02:24)
[2017-04-30 06:32] VITALS: BP 136/65; PULSE 78; RESP 18; TEMP 97.9; O2SAT 95
[2017-04-30] MEDS: QUEtiapine FUMARATE 25 MG TAB PO SCH ×2 (08:12→13:00)
[2017-04-30] MEDS: GABAPENTIN 100 MG CAP PO SCH ×2 (08:12→13:00)
[2017-04-30] MEDS: BUDESONIDE-FORMOTEROL 80/4.5 MCG INHALER INH SCH (08:13)
[2017-04-30] MEDS: amLODIPine BESYLATE 5 MG TAB PO SCH (08:13)
[2017-04-30] MEDS: ARIPiprazole 5 MG TAB PO SCH (08:13)
[2017-04-30] MEDS: DULoxetine HCl DR 30 MG CAP PO SCH (08:13)
[2017-04-30] MEDS: NICOTINE 21 MG/24 HR PATCH T-DERMAL SCH (08:16)
[2017-04-30] MEDS: LITHIUM CARBONATE 300 MG TAB PO SCH (09:00)
[2017-04-30] MEDS ORDERED: AMLO5 PO (13:02)
[2017-04-30] MEDS ORDERED: Budeson-Formot 80-4.5 Mcg Inh INH (13:02)
[2017-04-30] MEDS ORDERED: LITH300T3 PO (13:02)
[2017-04-30] MEDS ORDERED: SERO50TA PO (13:02)
[2017-04-30] MEDS ORDERED: TRAZ100T10 PO (13:02)
[2017-04-30] MEDS ORDERED: ARIP1TAB11 PO (13:02)
[2017-04-30] MEDS ORDERED: DULO1CAP2 PO (13:02)
[2017-04-30] MEDS ORDERED: GABA100C4 PO (13:02)
--- NOTE | 2017-04-30 13:08 | HHI.DS ---
Psychiatry Discharge Summary Inpatient Psychiatric care?: Yes Advance Directive: No Reason Not Provided: "I DONT NEED" Mental Health AdvanceDirective: No Health Care Proxy: No Admission Admission Date Apr 21, 2017 at 18:00 Admission Diagnosis: (1) Bipolar I disorder, most recent episode mixed, moderate ICD Code: F31.62 - Bipolar disorder, current episode mixed, moderate Brief History Patient is a 67-year-old white male comes here under Gant act signed by dawit Kyle April 18, 2017 8:11 AM at [facility] stating bipolar mixed labile agitated she was admitted to that hospital with complaints of back and leg pain. Was noted to be exhibiting manic behaviors also was seen by various physicians at that facility their diagnostic impression included acute renal failure superimposed delirium disorder appears to be resolving, bipolar disorder mixed, opiate use disorder. It appears the patient lives with a girlfriend plus years. For some reason he went off of his lithium and medication a few weeks ago. His behavior in the ED with these physicians showed irritability paranoia and lability. Homicidality able to find a urine toxicology her alcohol level assessment on this gentleman. It appears he was medically cleared on 04/20/17 at 1335 hrs. Patient transferred to this facility under the Gant act. [place] level drawn this morning came back at 0.11. At the present time patient sitting on his bed in his room nurse Norma present throughout session. Patient is alert he is oriented to person place situation and time there is a somewhat dysarthric stuttering speech. He is quite labile and emotional acknowledging racing thoughts he does have pressured speech. Though he does swing rapidly elevating irritable mood and loud hysterical weekly he also at times somewhat cynical giving information that is at times contradictory appears he has been living with this one woman for over 30 years but then he would state he has 3 or 4 girlfriends. He acknowledges being an alcoholic but has been sober for 25-30 years acknowledges marijuana in the past also. He denies any prior physical or sexual abuse. He somewhat superficial he states that his family of origin all had mental health issues and addiction issues. He states never been and has no children. He states she's been diagnosed with bipolar disorder 40 years ago meets had 10+ psychiatric hospitalizations. There is been seen recently through [facility]. It appears as noted on lithium and Seroquel at [facility]. At this time patient does meet criteria for further inpatient psychiatric hospitalization. I'll do first opinion request second opinion. I feel he does have capacity to sign for medication. We will also the hospitalist consult with us related to his various medical issues. We will restart his medications per the med reconciliation. Hopeless be a fairly short stay in the return of the community follow-up [facility] act The patient is a 67 years old man with history of bipolar disorder seen today for second opinion. Patient is found sleeping, easily arousable. Reports feeling okay, he says that he doesn't know the reason of his hospitalizations. However, was the patient is alert and awake he demonstrates increased mood lability, rapid speech, and cannabis disorganized speech and thought process. Patient is partially oriented in time and place. He does say that he wants to take his medication for bipolar disorder and being discharged as soon as possible. Tobacco Use In Past 30 Days: 5 or More Cigarettes/Day Alcohol Use: Never Hospital Course Patient's course in the hospital was somewhat uneventful. His initial intensity intrusiveness rapid pressured speech slow leak softening with his compliance with medication. He denied suicidality homicidality voices or visions. Patient seen again today he continues to deny suicidality homicidality voices or visions. He has been compliant with his medications. He does wish to go home to his own home. He is willing to be compliant with medications and appointments. [place] level has been drawn this morning and she is also not back at we'll monitor that if there is anything untoward we will contact the patient Results Blood Pressure 136 / 65 Vital Signs Date Time Temp Pulse Resp B/P (MAP) Pulse Ox O2 Delivery O2 Flow Rate FiO2 04/30/17 06:32 97.9 78 18 136/65 (88) 95 Laboratory Tests Test 04/28/17 10:14 04/30/17 11:35 Blood Urea Nitrogen 32 MG/DL (7-18) Creatinine 1.58 MG/DL (0.60-1.30) Sodium Level 134 MEQ/L (136-145) Estimat Glomerular Filtration Rate 44 ML/MIN (>89) Laboratory Results Test 04/23/17 08:27 04/30/17 11:35 Hemoglobin A1c 5.8 % (4.3-6.0) Summary of Procedures None done Pending results at discharge: Yes ([place] lithium level) Medications # of Antipsychotic meds at D/C: 2 Appropriate >1 Antipsych meds?: 2 (would recommend outpatient psychiatrist gradually tapered the Abilify as patient continues to recover) Approp Antipsych med options 1 - Minimum of three failed multiple trials of monotherapy. 2 - Documented plan to taper to monotherapy due to previous use of multiple meds OR cross-taper in progress at D/C. 3 - Documentation of augmentation of Clozapine. 4 - Justification other than those listed in allowable values 1-3, document here : Discharge Discharge Date: Apr 30, 2017 Discharge Diagnosis: (1) Bipolar I disorder, most recent episode mixed, moderate Diagnosis: Principal ICD Code: F31.62 - Bipolar disorder, current episode mixed, moderate Status: Acute Pt Condition on Discharge: Stable Discharge Disposition: Discharge Home Discharge Instructions Diet Instructions: As Tolerated, No Restrictions Activities you can perform: Regular-No Restrictions Scheduled Appointment: [facility] Spangler Appointment Date: May 04, 2017 Appointment Time: 7:30 a.m. Discharge Time > 30 minutes Mental Status Examination Appearance: Appropriate Consciousness: Alert Orientation: Person, Place, Date/Time, Situation Motor Activity: Normal gait Speech: Other (somewhat dysarthric) Language: Adequate Fund of Knowledge: Adequate Attention and Concentration: Adequate Memory: Unremarkable Mood: Sad, Anxious, Manic Affect: Other (increase range and intensity) Thought Process & Associations: Intact Thought Content: Bizarre thinking Hallucination Type: None Delusion Type: None Suicidal Ideation: No Suicidal Plan: No Suicidal Intention: No Homicidal Ideation: No Homicidal Plan: No Homicidal Intention: No Insight: Fair Judgment: Impulsive Discharge/Advance Care Plan Health Problems: (1) Bipolar I disorder, most recent episode mixed, moderate Goals to promote your health * To prevent worsening of your condition and complications * To maintain your health at the optimal level Directions to meet your goals Take your medications as prescribed Follow your dietary instruction Follow activity as directed Keep your appointments as scheduled Take your immunizations and boosters as scheduled If your symptoms worsen call your PCP, if no PCP go to Urgent Care Center or Emergency Room For 09/11 questions related to your inpatient stay or results of tests pending at discharge, please contact Dr. Clark Hair at Smoking is Dangerous to Your Health. Avoid second hand smoking Clark Hair MD Apr 30, 2017 13:08
== END 2017-04-30 14:20 | disposition home or self-care (01) | DRG 885 ==
LOC: H250 18:00
PROVIDERS: ADMIT Psychiatry & Neurology Psychiatry; ATTEND Psychiatry & Neurology Psychiatry
DX: F31.62 Bipolar disorder, current episode mixed, moderate (principal); G62.9 Polyneuropathy, unspecified; N18.3 Chronic kidney disease, stage 3 (moderate); J44.9 Chronic obstructive pulmonary disease, unspecified; I12.9 Hypertensive chronic kidney disease with stage 1 through stage 4 chronic kidney disease, or unspecified chronic kidney disease; K59.00 Constipation, unspecified; F17.290 Nicotine dependence, other tobacco product, uncomplicated; Z81.8 Family history of other mental and behavioral disorders; Z85.51 Personal history of malignant neoplasm of bladder; Z91.14 Patient's other noncompliance with medication regimen; Z92.21 Personal history of antineoplastic chemotherapy; Z92.3 Personal history of irradiation
CPT/HCPCS: 80048; 80053; 80178; 82550; 83036; 83735; 84100; 84439; 84443; 85025; 93005; 94640; 94664; Q0163

== ENCOUNTER 2017-07-11 19:40 | Inpatient (IN) | payer OTHER, MEDICAID, MEDICARE ==
[~2017-07-11 19:40] MED LIST: AMLO5 PO; ARIP1TAB11 PO; Budeson-Formot 80-4.5 Mcg Inh INH; DULO1CAP2 PO; GABA100C4 PO; LITH300T3 PO; SERO50TA PO; TRAZ100T10 PO
[2017-07-11 19:45] VITALS: BP 158/90; PULSE 95; RESP 16; TEMP 97.7; O2SAT 14
[2017-07-11] MEDS ORDERED: ACETAMINOPHEN 325 MG TAB PO PRN (21:00)
[2017-07-11] MEDS ORDERED: ALUMINUM/MAGNESIUM/SIMETH 30 ML CUP PO PRN (21:00)
[2017-07-11] MEDS ORDERED: MAGNESIUM HYDROXIDE SUSP 30 ML CUP PO PRN (21:00)
[2017-07-11] MEDS ORDERED: LORazepam 2 MG/ML VIAL IM PRN (21:00)
[2017-07-11] MEDS ORDERED: LORazepam 0.5 MG TAB PO PRN (21:00)
[2017-07-11] MEDS ORDERED: diphenhydrAMINE HCL 50 MG CAP PO PRN (21:00)
[2017-07-12 06:44] LABS: BICARBONATE 27.7 MEQ/L (21.0-32.0); BLOOD UREA NITROGEN 30 MG/DL (7-18); CALCIUM 9.3 MG/DL (8.5-10.1); CHLORIDE 104 MEQ/L (98-107); CREATININE 1.73 MG/DL (0.60-1.30); GLOMERULAR FILTRATION RATE 39 ML/MIN (>89); GLUCOSE,RANDOM 99 MG/DL (74-106); SODIUM (NA) 139 MEQ/L (136-145)
[2017-07-12 06:45] LABS: CHOLESTEROL 122 MG/DL (120-200); TRIGLYCERIDES 106 MG/DL (42-150)
[2017-07-12 06:55] LABS: CHOLESTEROL/ HDL RATIO 3.13 RATIO; HDL CHOLESTEROL 38.9 MG/DL (40.0-60.0); LDL CHOLESTEROL 62 MG/DL (0-99)
[2017-07-12 06:56] VITALS: BP 112/74; PULSE 90; RESP 16; TEMP 98.3; O2SAT 97
--- NOTE | 2017-07-12 10:25 | PD.TTN ---
Patient Problems 1. Discharge planning 2. Medication compliance 3. Knowledge deficit 4. Lack of coping skills Progress Toward Goals Provider Present: Dr. Gabriel Hair Provider Input: 07/12/17 Will meet with new pt today and discuss tx plan Nurse(s) Present: 07/12/17 None present Psychiatric Counselors Present: Glory Owen LCSW Group Spec/RT/OT/LENZ Present: YOANNA Ford Andrew Harrison, OT Group Spec/RT/OT/LENZ Input: 07/12/17 New pt. Will encourage participation in group activities Liliana Bustamante/Brigitte Jul 12, 2017 10:25
[2017-07-12] MEDS ORDERED: LITH300C2 PO (10:42)
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
--- NOTE | 2017-07-13 15:48 | EKG ---
Date Performed: 07/12/2017 Time Performed: 13:10:29 PTAGE: 67 years EKG: Sinus rhythm MARKED LEFT AXIS DEVIATION POSSIBLE LEFT VENTRICULAR HYPERTROPHY PREVIOUS TRACING : 04/22/2017 10.49 Since the previous tracing, no significant change not ed DOCTOR: Salvador Ferguson Interpretating Date/Time 07/13/2017 15:45:08
[2017-07-14 18:33] LABS: HEMOGLOBIN A1C 5.8 % (4.3-6.0)
== END 2017-07-12 13:45 | disposition home or self-care (01) | DRG 885 ==
LOC: H250 19:40
PROVIDERS: ADMIT Psychiatry & Neurology Psychiatry; ATTEND Psychiatry & Neurology Psychiatry
DX: F31.62 Bipolar disorder, current episode mixed, moderate (principal); F11.10 Opioid abuse, uncomplicated; F10.10 Alcohol abuse, uncomplicated
CPT/HCPCS: 80048; 80061; 83036; 84443; 93005